=== PATIENT | female | born 1990 | race Hispanic/Latino ===

== ENCOUNTER 2017-02-23 22:18 | Emergency (ER) | payer OTHER ==
[2017-02-23 22:50] VITALS: O2SAT 100
[2017-02-23] MEDS ORDERED: Sodium Chloride 0.9% 1,000 ML IV STA (23:17)
[2017-02-23] MEDS ORDERED: Magnesium Sulfate 2 gm/50 ml 2 GM/50 ML BAG IV STA (23:26)
[2017-02-23] MEDS ORDERED: DiphenhydrAMINE 50 mg/ml Inj IV STA (23:26)
[2017-02-23] MEDS ORDERED: Promethazine 25 MG in Sodium Chloride 0.9% 50 ML IVPB STA (23:31)
[2017-02-23 23:46] LABS: BASO # 0.1 K/uL (0.0-0.2); BASO % 0.7 % (0.0-2.0); EOS # 0.1 K/uL (0.0-0.7); LYMPH # 3.5 K/uL (1.0-4.3); LYMPH % 27.7 % (20.0-40.0); MEAN CELL VOLUME 87.1 fl (81.0-99.0); MEAN CORPUSCULAR HEMOGLOBIN 29.4 pg (27.0-31.0); MEAN CORPUSCULAR HGB CONC 33.8 g/dL (33.0-37.0); MEAN PLATELET VOLUME 6.9 fl (7.2-11.7); MONO % 8.2 % (0.0-10.0); NEUT # 7.8 K/uL (1.8-7.0); NEUT % 62.4 % (50.0-75.0); RBC 4.42 Mil/uL (3.80-5.20); RED CELL DISTRIBUTION WIDTH 13.3 % (11.5-14.5); WHITE BLOOD COUNT 12.5 K/uL (4.8-10.8)
[2017-02-23] MEDS ORDERED: DiphenhydrAMINE 50 mg/ml Inj ONE (23:46)
[2017-02-23] MEDS ORDERED: Magnesium Sulfate 2 gm/50 ml 2 GM/50 ML BAG ONE (23:47)
[2017-02-23 23:53] LABS: ALB/GLOB RATIO 1.6 (1.0-2.1); ALBUMIN 4.7 g/dL (3.5-5.0); ALT/SGPT 43 U/L (9-52); AST/SGOT 25 U/L (14-36); BLOOD UREA NITROGEN 14 mg/dl (7-17); GFR AFRICAN-AMERICAN > 60; GFR NON-AFRICAN AMERICAN > 60
--- NOTE | 2017-02-24 00:09 | ED PDOC ---
HPI: Headache Time Seen by Provider: 02/23/17 23:16 Chief Complaint (Nursing): Headache History Per: Patient History/Exam Limitations: no limitations Onset/Duration Of Symptoms: Days (2) Current Symptoms Are (Timing): Still Present Severity: Severe Quality: "Pain" Preceeding Symptoms: Known Migraine Symptoms Associated Symptoms: denies: Photophobia, Blurred Vision, Nausea, Vomiting, Extremity Weakness Additional History Per: Patient Additional Complaint(s): Emy Hernandez is a 26 y/o female with history of Migraine and Cluster Headache, who complains of bilateral frontal headache x2 days that was not relieved with Imitrex injection, or Compazine. She denies any fever, photophobia , phonophobia, numbness, weakness, neck pain, neck stiffness, or other complaint. Patient reports history of chronic migraine and cluster headaches that have been stable over the last 6 months, but were exacerbated by previous black mold exposure. Past Medical History Vital Signs: Last Vital Signs Temp 98.5 F 02/23/17 22:46 Pulse 68 02/23/17 22:46 Resp 18 02/23/17 22:46 BP 124/74 02/23/17 22:46 Pulse Ox 100 02/23/17 22:46 - Medical History PMH: Migraine Other PMH: cluster headache, anorexia, and bulimia - Surgical History Surgical History: No Surg Hx - Family History Family History: States: Unknown Family Hx - Social History Current smoker - smoking cessation education provided: No Alcohol: None Drugs: Denies - Allergies Allergies/Adverse Reactions: Allergies Allergy/AdvReac Type Severity Reaction Status Date / Time Penicillins Allergy RASH Verified 02/23/17 22:46 Review of Systems ROS Statement: Except As Marked, All Systems Reviewed And Found Negative Neurological: Positive for: Headache Physical Exam - Reviewed Nursing Documentation Reviewed: Yes Vital Signs Reviewed: Yes - Physical Exam Appears: Positive for: Well, Non-toxic, No Acute Distress Head Exam: Positive for: ATRAUMATIC, NORMAL INSPECTION, NORMOCEPHALIC Skin: Positive for: Normal Color, Warm, DRY Eye Exam: Positive for: EOMI, Normal appearance, PERRL ENT: Positive for: Normal ENT Inspection Neck: Positive for: Normal, Painless ROM Cardiovascular/Chest: Positive for: Regular Rate, Rhythm Respiratory: Positive for: CNT, Normal Breath Sounds Gastrointestinal/Abdominal: Positive for: Normal Exam, Bowel Sounds, Soft Back: Positive for: Normal Inspection Extremity: Positive for: Normal ROM Neurologic/Psych: Positive for: Alert, Oriented - Laboratory Results Result Diagrams: 02/23/17 23:40 02/23/17 23:40 - ECG O2 Sat by Pulse Oximetry: 100 (RA) Pulse Ox Interpretation: Normal Medical Decision Making Medical Decision Making: Initial Impression: 26 y/o female complaining of headache in the setting of known history of migraine and cluster headache. Plan: - Phenergan, Magnesiu Sulfate, Solumetrol, Benadryl, and IVF - Urine Test and UDS 01:00: patient continues to complain of pain, requesting Dilaudid. Discussed with patient that narcotics are not indicated for headache and recommended Keppra. 02:00: Patient continues to complain of pain that is unchanged, and is requesting Dilaudid. Offered patient Toradol, who accepted. 02:49: patient continues to complain of pain and was given Tramadol. Discussed that her headache is intractable and a CT is prudent. Patient expressed that she wished to go to the [place], rather than be admitted here for intractable headache after she was informed that she would not be given any narcotics for her pain. Patient was discharged at her request in stable condition. Return and follow up instructions given. Scribe Attestation Documented by Mey Frey acting as a scribe for Rolando Arzate MD. Provider Attestation: All medical record entries made by the Scribe were at my direction and personally dictated by me. I have reviewed the chart and agree that the record accurately reflects my personal performance of the history, physical exam, medical decision making, and the department course for this patient. I have also personally directed, reviewed, and agree with the discharge instructions and disposition. Disposition - Clinical Impression Clinical Impression: Headache - Disposition Referrals: Antione Aguilar MD [Medical Doctor] - Disposition Time: 02:50 Condition: STABLE Instructions: Acute Headache (ED)
[2017-02-24] MEDS ORDERED: levETIRAcetam 500 MG in Sodium Chloride 0.9% 100 ML IVPB ONE (01:00)
[2017-02-24] MEDS ORDERED: Apap-Butalbital-Caffeine 325-50-40mg Tab PO STA (02:00)
[2017-02-24 03:16] VITALS: BP 125/80; PULSE 75; RESP 16; TEMP 97.9
== END 2017-02-24 03:16 | disposition home or self-care (01) ==
LOC: H.ER 22:18
DX: R51 Headache (principal); Z88.0 Allergy status to penicillin
CPT/HCPCS: 80053; 81025; 85025; 96365; 96367; 96375; 99283; J1200; J1885; J1953; J2550; J2930; J7040

== ENCOUNTER 2017-03-02 23:57 | Observation (INO) | payer OTHER ==
[2017-03-03] MEDS ORDERED: Sodium Chloride 0.9% 1,000 ML IV STA (00:58)
--- NOTE | 2017-03-03 01:12 | ED PDOC ---
HPI: Abdomen Time Seen by Provider: 03/03/17 00:47 Chief Complaint (Nursing): Abdominal Pain Chief Complaint (Provider): Addominal pain History Per: Patient History/Exam Limitations: no limitations Onset/Duration Of Symptoms: Hrs (Started 1 hour ago) Outside of [place] travel?: No Current Symptoms Are (Timing): Still Present Severity: Severe Pain Scale Rating Of: 9 Location Of Pain/Discomfort: Epigastric Quality Of Discomfort: Stabbing Associated Symptoms: Nausea, Vomiting (1 vomiting with mixed food, no blood.), Diarrhea (1 liquid diarrhea containing rest of food, no blood or mucus.). denies: Fever, Chills Exacerbating Factors: None Alleviating Factors: None Last Bowel Movement: Today Additional History Per: Patient Additional Complaint(s): CC: abdominal pain. HPI: Patient 26 yo F with PMH of Migraine and Anxiety presents to the ED complaining of severe abdominal pain in the epigastric area started 1 hour ago, 9/10, stabbing, no radiated, no alleviating or aggravating factors, associated with nausea, vomiting (1 vomit today with rest of food, no blood) and diarrhea( 1 liquid diarrhea no blood or mucus). Denies fever, chills, headache, urinary symptoms, no unusual food, no recent injury or trauma. PMH: Migraine, Anxiety. PSH: none. SH: Denies smoking. Alcohol socially. Denies recreational drugs. Allergies: Penicillins Meds: Flouxetine. Abnormal Vaginal Bleeding: No Past Medical History Vital Signs: Last Vital Signs Temp 98.4 F 03/03/17 00:12 Pulse 81 03/03/17 00:12 Resp 18 03/03/17 00:12 BP 126/70 03/03/17 00:12 Pulse Ox 98 03/03/17 05:24 - Medical History PMH: Anxiety, Migraine - Surgical History Surgical History: Endoscopy (and colonoscopy) - Family History Family History: States: Unknown Family Hx - Social History Current smoker - smoking cessation education provided: No Alcohol: Social Drugs: Denies - Home Medications Home Medications: Ambulatory Orders Medication Instructions Recorded Dicyclomine [Bentyl] 20 mg PO Q12 PRN #20 tab 03/03/17 Ondansetron ODT [Zofran ODT] 4 mg PO Q6 PRN #16 odt 03/03/17 - Allergies Allergies/Adverse Reactions: Allergies Allergy/AdvReac Type Severity Reaction Status Date / Time Penicillins Allergy RASH Verified 03/03/17 00:12 Review of Systems ROS Statement: Except As Marked, All Systems Reviewed And Found Negative Constitutional: Negative for: Fever, Chills, Weakness, Malaise Eyes: Negative for: Pain, Vision Change ENT: Negative for: Ear Pain, Nose Pain, Throat Pain Cardiovascular: Negative for: Chest Pain, Palpitations, Light Headedness Respiratory: Negative for: Cough, Shortness of Breath Gastrointestinal: Positive for: Nausea, Vomiting, Abdominal Pain, Diarrhea Genitourinary Female: Negative for: Dysuria, Frequency Musculoskeletal: Negative for: Neck Pain, Back Pain Skin: Negative for: Rash Neurological: Negative for: Weakness, Numbness, Altered Mental Status Physical Exam - Reviewed Nursing Documentation Reviewed: Yes Vital Signs Reviewed: Yes - Physical Exam Appears: Positive for: Well, No Acute Distress Head Exam: Positive for: ATRAUMATIC, NORMOCEPHALIC Skin: Positive for: Normal Color, Warm, Dry. Negative for: Diaphoresis Eye Exam: Positive for: Normal appearance, EOMI, PERRL. Negative for: Nystagmus ENT: Positive for: Normal ENT Inspection Neck: Positive for: Normal, Supple Cardiovascular/Chest: Positive for: Regular Rate, Rhythm. Negative for: Murmur Respiratory: Positive for: Normal Breath Sounds Pulses-Carotid (L): 2+ Pulses-Carotid (R): 2+ Pulses-Dorsalis Pedis (L): 2+ Pulses-Dorsalis Pedis (R): 2+ Pulses-Femoral (L): 2+ Pulses-Femoral (R): 2+ Pulses-Post. Tibialis (L): 2+ Pulses-Post. Tibialis (R): 2+ Pulses-Radial (L): 2+ Pulses-Radial (R): 2+ Gastrointestinal/Abdominal: Positive for: Bowel Sounds, Soft, Tenderness (Mild tenderness on palpation of epigastric area ). Negative for: Mass, Distended, Guarding, Rebound Back: Positive for: Normal Inspection Extremity: Positive for: Normal ROM. Negative for: Calf Tenderness DTR - Knee (R): 2+ DTR - Knee (L): 2+ Neurologic/Psych: Positive for: Alert, heating and cooling systems engineer II-XII, Oriented - Laboratory Results Result Diagrams: 03/03/17 01:24 03/03/17 01:24 - ECG O2 Sat by Pulse Oximetry: 98 - Progress ED Course And Treament: Impression: 26 yo F patient presents complaining of epigastric pain. Plan: CBC CMP Lipase test, urine Urinalysis IV NS. Pepcid 20 mg IV once. Zofran 4 mg IV once. Dicyclomine 20 mg PO once. Reevaluate. Medical Decision Making Medical Decision Making: Impression: 26 yo F patient presents complaining of epigastric pain. Plan: CBC: WNL CMP: WNL Lipase: normal test, urine Urinalysis: normal results. IV NS. Pepcid 20 mg IV once. Zofran 4 mg IV once. Dicyclomine 20 mg PO once. Reevaluate. 0220: Patient is still in pain, requests medications for pain, we explain that narcotics medications are no indicated for abdominal pain and that CT is prudent at this time, we recommend Toradol. 0300: Patient complains still in pain, we recommend Benadryl and Phenergan. Will admit her for observation. 0440: Received Abdominal CT scan without any abnormal observations. 0530: Patient refers feel better, she does no have pain at this time, will discharge her with instructions. Disposition - Clinical Impression Clinical Impression: Abdominal pain, Abdominal pain - Patient ED Disposition Is Patient to be Admitted: No Counseled Patient/Family Regarding: Studies Performed, Diagnosis, Need For Followup, Rx Given - Disposition Disposition: Routine/Home Disposition Time: 05:30 Condition: STABLE
[2017-03-03 01:27] LABS: BASO % 0.4 % (0.0-2.0); EOS # 0.4 K/uL (0.0-0.7); EOS % 3.9 % (0.0-4.0); HEMOGLOBIN 13.5 g/dL (12.0-16.0); LYMPH # 3.6 K/uL (1.0-4.3); LYMPH % 33.5 % (20.0-40.0); MEAN CORPUSCULAR HEMOGLOBIN 29.8 pg (27.0-31.0); MEAN CORPUSCULAR HGB CONC 33.9 g/dL (33.0-37.0); MEAN PLATELET VOLUME 7.2 fl (7.2-11.7); MONO % 9.2 % (0.0-10.0); NEUT # 5.7 K/uL (1.8-7.0); NRBC % 0.1 % (0.0-0.0); RBC 4.55 Mil/uL (3.80-5.20); RED CELL DISTRIBUTION WIDTH 13.3 % (11.5-14.5); WHITE BLOOD COUNT 10.7 K/uL (4.8-10.8)
[2017-03-03 01:35] LABS: ALB/GLOB RATIO 1.4 (1.0-2.1); ALBUMIN 4.5 g/dL (3.5-5.0); ALT/SGPT 48 U/L (9-52); AST/SGOT 32 U/L (14-36); BLOOD UREA NITROGEN 15 mg/dl (7-17); CALCIUM 9.5 mg/dL (8.4-10.2); GFR AFRICAN-AMERICAN > 60; GFR NON-AFRICAN AMERICAN > 60; LIPASE 118 U/L (23-300)
[2017-03-03] MEDS ORDERED: Iohexol 240 (50 ml) PO ONE (02:22)
[2017-03-03] MEDS ORDERED: DiphenhydrAMINE 50 mg/ml Inj IV STA (03:17)
[2017-03-03] MEDS ORDERED: Promethazine 25 MG in Sodium Chloride 0.9% 50 ML IVPB STA (03:36)
[2017-03-03] MEDS ORDERED: DiphenhydrAMINE 50 mg/ml Inj ONE (03:37)
[2017-03-03] MEDS ORDERED: Sodium Chloride 0.9% 50 ML IV ONE (04:06)
[2017-03-03] MEDS ORDERED: Iohexol 300 100 ML IJ ONE (04:06)
--- NOTE | 2017-03-03 09:52 | CT ---
PROCEDURE: CT Abdomen and Pelvis with oral and IV contrast. HISTORY: abd pain COMPARISON: None available TECHNIQUE: Contiguous axial images of the abdomen and pelvis. Oral and IV contrast was administered. Coronal and Sagittal reformats generated and reviewed. Contrast dose: 95 cc Omnipaque 300 Radiation dose: Total exam DLP = 647.41 mGy-cm. This CT exam was performed using one or more of the following dose reduction techniques: Automated exposure control, adjustment of the mA and/or kV according to patient size, and/or use of iterative reconstruction technique. FINDINGS: LOWER THORAX: No visible consolidation, pleural effusion, or pneumothorax. LIVER: Too small to characterize 8 x 7 mm left hepatic lobe hypodensity, possibly cyst or hemangioma. Mild diffuse hypoattenuation of the hepatic parenchyma may represent hepatic steatosis. GALLBLADDER AND BILE DUCTS: Unremarkable. PANCREAS: Unremarkable. SPLEEN: Unremarkable. ADRENALS: Unremarkable. KIDNEYS AND URETERS: The kidneys enhance symmetrically. No hydronephrosis or obstructing renal calculus. BLADDER: The urinary bladder appears unremarkable. REPRODUCTIVE: Uterus is present. IUD. Evidence of left ovarian follicle/cyst, likely recently ruptured. 2.3 x 1.3 cm cystic appearing focus along the right lower uterine segment/ cervix of unclear significance. Recommend further evaluation with pelvic ultrasound. APPENDIX: Appendix appears within normal limits of caliber. No secondary signs of acute appendicitis. BOWEL: The stomach is nondistended. The bowel loops appear within normal limits of caliber without evidence of intestinal obstruction. Moderate constipation. PERITONEUM: No significant free fluid. No definite free air. LYMPH NODES: No bulky lymphadenopathy identified. VASCULATURE: No aortic aneurysm. BONES: No acute osseous abnormality is detected. OTHER FINDINGS: None. IMPRESSION: 2.3 x 1.3 cm cystic appearing focus along the right lower uterine segment/ cervix of unclear significance. Recommend further evaluation with pelvic ultrasound. IUD. Evidence of left ovarian follicle/cyst, likely recently ruptured. Moderate constipation. Study has been marked for PA review.
[2017-03-03 12:21] VITALS: BP 126/70; PULSE 81; RESP 18; TEMP 98.4; O2SAT 98; BMI 21.9
[2017-03-04] MEDS ORDERED: DiphenhydrAMINE 50 mg/ml Inj ONE (22:00)
== END 2017-03-03 05:37 | disposition home or self-care (01) ==
LOC: H.ER 23:57 → H.EROBSV 03-03 02:39
PROVIDERS: ADMIT Emergency Medicine; ATTEND Emergency Medicine
DX: R10.13 Epigastric pain (principal); G43.909 Migraine, unspecified, not intractable, without status migrainosus; F41.9 Anxiety disorder, unspecified
CPT/HCPCS: 74177; 80053; 81025; 83690; 85025; 96360; 99283; G0378; J1200; J1885; J2405; J2550; J7040; Q9966; Q9967

== ENCOUNTER 2017-03-04 16:48 | Observation (INO) | payer OTHER ==
[2017-03-04 16:48] VITALS: BMI 21.9
[2017-03-04] MEDS ORDERED: Sodium Chloride 0.9% 1,000 ML IV STA (17:34)
[2017-03-04 17:55] LABS: BASO % 0.4 % (0.0-2.0); EOS # 0.2 K/uL (0.0-0.7); EOS % 1.8 % (0.0-4.0); HEMOGLOBIN 13.5 g/dL (12.0-16.0); LYMPH # 2.4 K/uL (1.0-4.3); LYMPH % 25.5 % (20.0-40.0); MEAN CORPUSCULAR HEMOGLOBIN 30.4 pg (27.0-31.0); MEAN CORPUSCULAR HGB CONC 34.5 g/dL (33.0-37.0); MEAN PLATELET VOLUME 7.3 fl (7.2-11.7); MONO # 0.9 K/uL (0.0-0.8); MONO % 9.1 % (0.0-10.0); NEUT % 63.2 % (50.0-75.0); NRBC % 0.2 % (0.0-0.0); RBC 4.45 Mil/uL (3.80-5.20); RED CELL DISTRIBUTION WIDTH 12.9 % (11.5-14.5); WHITE BLOOD COUNT 9.5 K/uL (4.8-10.8)
--- NOTE | 2017-03-04 17:59 | ED PDOC ---
HPI: Abdomen Time Seen by Provider: 03/04/17 17:22 Chief Complaint (Nursing): Abdominal Pain Chief Complaint (Provider): Abdominal Pain History Per: Patient History/Exam Limitations: no limitations Onset/Duration Of Symptoms: Days (x2 days) Current Symptoms Are (Timing): Still Present Additional Complaint(s): 26 y/o female presents to the emergency department with a complaint of an epigastric and right upper quadrant abdominal pain x2 days. Patient visited the emergency room here on 03/03/2017 for the same symptoms and completed a CAT Scan with no specific pathology noted for gastrointestinal abnormalities. There is right sided questionable pelvic cystic structure although patient does not have pain at the right lower quadrant. Denies nausea, diarrhea, painful urination or fever. Past Medical History Reviewed: Historical Data, Nursing Documentation, Vital Signs Vital Signs: Last Vital Signs Temp 98.7 F 03/04/17 16:52 Pulse 100 H 03/04/17 16:52 Resp 19 03/04/17 16:52 BP 147/71 03/04/17 16:52 Pulse Ox 99 03/04/17 18:05 - Medical History PMH: Anxiety, Migraine Other PMH: Childhood eating disorder - Surgical History Surgical History: Endoscopy (and colonoscopy) - Family History Family History: States: Unknown Family Hx - Home Medications Home Medications: Ambulatory Orders Medication Instructions Recorded Dicyclomine [Bentyl] 20 mg PO Q12 PRN #20 tab 03/03/17 Ondansetron ODT [Zofran ODT] 4 mg PO Q6 PRN #16 odt 03/03/17 - Allergies Allergies/Adverse Reactions: Allergies Allergy/AdvReac Type Severity Reaction Status Date / Time Penicillins Allergy RASH Verified 03/03/17 00:12 Review of Systems ROS Statement: Except As Marked, All Systems Reviewed And Found Negative Constitutional: Negative for: Fever Gastrointestinal: Positive for: Abdominal Pain. Negative for: Nausea, Diarrhea Genitourinary Female: Negative for: Dysuria Physical Exam - Reviewed Nursing Documentation Reviewed: Yes Vital Signs Reviewed: Yes - Physical Exam Appears: Positive for: Non-toxic, No Acute Distress Head Exam: Positive for: ATRAUMATIC, NORMAL INSPECTION, NORMOCEPHALIC Skin: Positive for: Normal Color, Warm, Dry Neck: Positive for: Normal, Supple Gastrointestinal/Abdominal: Positive for: Soft, Tenderness (Mild RUQ and epigastric tenderness). Negative for: Normal Exam (No RLQ tenderness), Mass Back: Positive for: Normal Inspection. Negative for: L CVA Tenderness, R CVA Tenderness Extremity: Positive for: Normal ROM. Negative for: Pedal Edema Neurologic/Psych: Positive for: Alert, Oriented - Laboratory Results Result Diagrams: 03/04/17 17:50 03/04/17 17:50 - ECG O2 Sat by Pulse Oximetry: 99 (RA) Pulse Ox Interpretation: Normal Medical Decision Making Medical Decision Making: Time: 17:33 Initial impression: Abdominal Pain Initial plan: --Abdomen Limited US --Pelvic non OB B Scan limited US --Pepcid 20 mg IVP --Morphine 2 mg IVP --Sodium Chloride 1,000 ml IV 100 mls/hr --Ondansetron 4 mg IVP --CBC w/ differential --Urine DIP --Urine Preg --Lipase --COMP Metabolic Panel --Reevaluation Scribe Attestation: Documented by Cindy Ragland, acting as a scribe for Fareed Maki MD. Provider Scribe Attestation: All medical record entries made by the Scribe were at my direction and personally dictated by me. I have reviewed the chart and agree that the record accurately reflects my personal performance of the history, physical exam, medical decision making, and the department course for this patient. I have also personally directed, reviewed, and agree with the discharge instructions and disposition. Disposition - Clinical Impression Clinical Impression: Abdominal pain - Patient ED Disposition Is Patient to be Admitted: Transfer of Care - Disposition Disposition: Transfer of Care Disposition Time: 18:57 Condition: FAIR Patient Signed Over To: Rolando Arzate
[2017-03-04 18:13] LABS: ALB/GLOB RATIO 1.3 (1.0-2.1); ALBUMIN 4.4 g/dL (3.5-5.0); ALT/SGPT 44 U/L (9-52); AST/SGOT 33 U/L (14-36); BLOOD UREA NITROGEN 12 mg/dl (7-17); CALCIUM 9.5 mg/dL (8.4-10.2); GFR AFRICAN-AMERICAN > 60; GFR NON-AFRICAN AMERICAN > 60; LIPASE 108 U/L (23-300)
--- NOTE | 2017-03-04 19:30 | ED PDOC ---
- Laboratory Results Result Diagrams: 03/04/17 17:50 03/04/17 17:50 - ECG O2 Sat by Pulse Oximetry: 99 (RA) Pulse Ox Interpretation: Normal Medical Decision Making Medical Decision Making: Time: 19:00 --Patient was transferred [facility] Dr. Maki [place]. --Pending Pelvic US Time: 19:13 --Abdomen US FINDINGS: The liver is normal in size (14.8 cm length). Small echogenic focus (9 mm avg. size) in left hepatic lobe. Moderately contracted gallbladder, with normal wall thickness. No stones nor sludge are seen. No pericholecystic fluid is appreciated. The sonographic Carrillo's sign is reported to be (-). The CBD is not dilated (3.6 mm diameter). The pancreas appears unremarkable. The right kidney measures 10.2 cm in length, with no hydronephrosis appreciated. No ascites is seen. IMPRESSION: Probable small hemangioma (8 mm size) in the left hepatic lobe. No gallstones are appreciated. Moderately contracted gallbladder. No biliary dilatation. No abnormal fluid collections are evident. Time: 20:53 --Pelvic US FINDINGS: Uterus/cervix: IUD in the endometrial canal. Endometrial stripe is thin. No myometrial mass. Right ovary: Unremarkable. No mass. Normal blood flow. Left ovary: Unremarkable. No mass. Normal blood flow. Free fluid: No free fluid. IMPRESSION: No acute findings. IUD in good position. Time: 20:51 --RN informed provider that she woudl like Compazine/Benadryl/Dilaudid for nausea and pain as she has received in [facility]. All normal results were explained at length to patient. Patient had informed nursing staff that she disliked this provider. In providers opinion, this is likely due to provider's refusal to administer patient opiates as she has requested. --This provider subsequently sat with the patient at length, and informed her that the role of the provider is not to befriend or necessarily be liked by the patient, but to provide appropriate and responsible medical care. Provider also explained that patient jeopardizes her care by asking for Dilaudid from providers as her presentation constitues opiate seeking behavior. The patient accepted her impropriety and began to cry that she is frustrated by her pain and does nopt know what to do. --The patient had requested IV Dilaudid for pain which the provider has refused. The patient was made aware that IV Dilaudid is not an appropriate form of treatment for her current condition. Patient is now agreeable to IV Benadryl and promethazine. --Furthermore the patient was made aware that in the absence of acute pathology or derangement of labs/imaging studies it is inappropriate to administer narcotics. Patient now cites concern about lack of improvement and inability to secure follow up. She states in past she has required naso gastrojejunal tubes for bowel rest when she has had similar episodes. --Patient has had 3 ED visits she has had in the last 9 days; provider opines she may benefit from observation status and GI and pain management consults. She has been unequivocally informed that hospitalist service will also not administer narcotics for pain. --Arrangement was made with Dr. Machado (hospitalist) for intractable abdominal. Condition is fair. --Admit to hospital routine: Observation in Med/Surg for intractable abdominal pain after consult with Dr. Daniela Machado MD Scribe Attestation: Documented by Cindy Ragland, acting as a scribe for Rolando Arzate MD. Provider Scribe Attestation: All medical record entries made by the Scribe were at my direction and personally dictated by me. I have reviewed the chart and agree that the record accurately reflects my personal performance of the history, physical exam, medical decision making, and the department course for this patient. I have also personally directed, reviewed, and agree with the discharge instructions and disposition. Disposition Counseled Patient/Family Regarding: Diagnosis - Clinical Impression Clinical Impression: Intractable abdominal pain - POA Present On Arrival: None - Disposition Disposition: Hospitalized as Observation Patient Disposition Time: 20:00 Condition: FAIR
[2017-03-04] MEDS ORDERED: DiphenhydrAMINE 50 mg/ml Inj IV STA (20:51)
--- NOTE | 2017-03-04 21:00 | CP.PCM.HP ---
History of Present Illness - History of Present Illness History of Present Illness: CC: Abd pain, n, v HPI: This is a 26 y/o female with MHx significant for migraine RICKS, past eating d /o, and 18 months now of ongoing GI issues without clear diagnosis. She comes in for the 2nd time this week with intractable abd pain, n, and occ vomiting. Denies f/c/n/v/d. States she has been worked up at various places and has had multiple scans, EGDs, etc. She did have a gastric emptying study that was abnormal some months ago. Over past two days pain has been worse, and she has not been able to tolerate PO. Denies EtOH, denies binging/purging. Follows gastroparesis diet. ROS: 14 systems reviewed, negative other than HPI MHx: Migraine, eating d/o in past SHx: Endoscopy, but no other surgeries Allergies: PCN, erythromycin Family Hx: reviewed, non contributory Social Hx: Lives with roommate, no tobacco or EtOH Present on Admission - Present on Admission Any Indicators Present on Admission: No Past Patient History - Infectious Disease Hx of Infectious Diseases: None - Past Social History Smoking Status: Never Smoked - NEUROLOGICAL Hx Migraine: Yes - GASTROINTESTINAL Hx Ulcer: Yes - PSYCHIATRIC Hx Anxiety: Yes - ANESTHESIA Hx Anesthesia: Yes Hx Anesthesia Reactions: No Hx Malignant Hyperthermia: No Meds Allergies/Adverse Reactions: Allergies Allergy/AdvReac Type Severity Reaction Status Date / Time Penicillins Allergy RASH Verified 03/03/17 00:12 Physical Exam - Constitutional Appears: No Acute Distress - Head Exam Head Exam: ATRAUMATIC, NORMOCEPHALIC - Eye Exam Eye Exam: EOMI, PERRL - ENT Exam ENT Exam: Mucous Membranes Moist - Neck Exam Neck exam: Positive for: Full Rom - Respiratory Exam Respiratory Exam: Clear to Auscultation Bilateral, NORMAL BREATHING PATTERN - Cardiovascular Exam Cardiovascular Exam: REGULAR RHYTHM, +S1, +S2 - GI/Abdominal Exam GI & Abdominal Exam: Normal Bowel Sounds, Soft, Tenderness Additional comments: diffuse ttp - Extremities Exam Extremities exam: Positive for: full ROM, normal inspection - Neurological Exam Neurological exam: Alert, CN II-XII Intact, Oriented x3 - Psychiatric Exam Psychiatric exam: Normal Affect, Normal Mood - Skin Skin Exam: Dry, Warm Results - Vital Signs Recent Vital Signs: Last Vital Signs Temp 98.7 F 03/04/17 16:52 Pulse 100 H 03/04/17 16:52 Resp 19 03/04/17 16:52 BP 147/71 03/04/17 16:52 Pulse Ox 99 03/04/17 19:30 - Labs Result Diagrams: 03/04/17 17:50 03/04/17 17:50 Labs: Laboratory Results - last 24 hr 03/04/17 03/04/17 17:50 17:50 WBC 9.5 RBC 4.45 Hgb 13.5 Hct 39.2 MCV 88.0 MCH 30.4 MCHC 34.5 RDW 12.9 Plt Count 256 MPV 7.3 Neut % (Auto) 63.2 Lymph % (Auto) 25.5 [place] % (Auto) 9.1 Eos % (Auto) 1.8 Baso % (Auto) 0.4 Neut # 6.0 Lymph # 2.4 [place] # 0.9 H Eos # 0.2 Baso # 0.0 Sodium 141 Potassium 4.0 Chloride 106 Carbon Dioxide 25 Anion Gap 14 BUN 12 Creatinine 0.7 Est GFR ( Amer) > 60 Est GFR (Non-Af Amer) > 60 Random Glucose 77 Calcium 9.5 Total Bilirubin 0.8 AST 33 ALT 44 Alkaline Phosphatase 74 Total Protein 7.8 Albumin 4.4 Globulin 3.4 Albumin/Globulin Ratio 1.3 Lipase 108 - Imaging and Cardiology US - abdomen Status: Report reviewed by me (FINDINGS:) Assessment & Plan (1) Abdominal pain Assessment and Plan: 26 y/o female with intractable abdominal pain, but no clear etiology. -Admit obs -NPO, IVF -Toradol for pain, Zofran/phenergen IV for n/v -GI consult in AM -Patient ambulates, no other DVT PPx for now Status: Acute (2) DVT prophylaxis Status: Acute
[2017-03-04] MEDS: Sodium Chloride 0.9% 1,000 ML IV SCH (22:04)
[2017-03-05 00:20] VITALS: O2SAT 98
[2017-03-05] MEDS ORDERED: Promethazine 25 MG in Sodium Chloride 0.9% 50 ML IVPB PRN (01:36)
[2017-03-05] MEDS: DiphenhydrAMINE 50 mg/ml Inj IVP PRN ×2 (01:54→08:32)
[2017-03-05] MEDS: Sodium Chloride 0.9% 1,000 ML IV SCH (08:24)
[2017-03-05 08:45] VITALS: BP 101/61; PULSE 79; RESP 20; TEMP 98
--- NOTE | 2017-03-05 11:23 | US ---
HISTORY: epigastric/RUQ pain COMPARISON: None. TECHNIQUE: Sonographic evaluation of the right upper quadrant of the abdomen. FINDINGS: LIVER: Measures 14.8 cm in length. Normal echogenicity of the liver parenchyma. 10 mm rounded echogenic mass in left lobe of liver. This corresponds to a mass identified on CT examination of 03/03/2017. Consider multiphasic contrast enhanced CT of the abdomen with hemangioma protocol. No biliary dilatation. No other hepatic mass. Smooth contour. GALLBLADDER: Gallbladder contracted. No calcified stones. No gross mural thickening. COMMON BILE DUCT: Measures 4 mm. No stones. No dilatation. PANCREAS: Unremarkable as visualized. No mass. No ductal dilatation. RIGHT KIDNEY: Measures 10.2 cm in length. Normal echogenicity. No calculus, mass, or hydronephrosis. AORTA: No aneurysmal dilatation. IVC: Unremarkable. OTHER FINDINGS: None . IMPRESSION: 10 mm echogenic rounded mass in left lobe of liver. Nonspecific. Consider contrast CT of the abdomen with hemangioma protocol. No cholelithiasis or cholecystitis. Otherwise unremarkable.
--- NOTE | 2017-03-05 11:35 | US ---
HISTORY: r/o mass, CT findings right side COMPARISON: None available. TECHNIQUE: Transabdominal FINDINGS: UTERUS: Measures 6.5 x 4.3 x 3.2 cm. No uterine mass. Intrauterine device noted. ENDOMETRIUM: Thin endometrium. Somewhat obscure prior presence of intrauterine device centrally within the endometrial echo complex. CERVIX: No cervical abnormality identified. RIGHT OVARY: Measures cm. No solid mass. Normal flow. LEFT OVARY: Measures 1.8 x 2.1 x 1.1 cm. No solid mass. Normal flow. FREE FLUID: No significant free fluid noted. OTHER FINDINGS: None. IMPRESSION: Intrauterine device located centrally within endometrial echo complex. Otherwise unremarkable examination.
--- NOTE | 2017-03-05 16:00 | CP.PCM.DIS ---
Provider - Provider Date of Admission: 03/04/17 20:51 Attending physician: Daniela Machado MD Primary care physician: none Time Spent in preparation of Discharge (in minutes): 15 Hospital Course - Lab Results Lab Results: Most Recent Lab Values WBC 9.5 K/uL (4.8-10.8) 03/04/17 17:50 RBC 4.45 Mil/uL (3.80-5.20) 03/04/17 17:50 Hgb 13.5 g/dL (12.0-16.0) 03/04/17 17:50 Hct 39.2 % (34.0-47.0) 03/04/17 17:50 MCV 88.0 fl (81.0-99.0) 03/04/17 17:50 MCH 30.4 pg (27.0-31.0) 03/04/17 17:50 MCHC 34.5 g/dL (33.0-37.0) 03/04/17 17:50 RDW 12.9 % (11.5-14.5) 03/04/17 17:50 Plt Count 256 K/uL (130-400) 03/04/17 17:50 MPV 7.3 fl (7.2-11.7) 03/04/17 17:50 Neut % (Auto) 63.2 % (50.0-75.0) 03/04/17 17:50 Lymph % (Auto) 25.5 % (20.0-40.0) 03/04/17 17:50 Morris % (Auto) 9.1 % (0.0-10.0) 03/04/17 17:50 Eos % (Auto) 1.8 % (0.0-4.0) 03/04/17 17:50 Baso % (Auto) 0.4 % (0.0-2.0) 03/04/17 17:50 Neut # 6.0 K/uL (1.8-7.0) 03/04/17 17:50 Lymph # 2.4 K/uL (1.0-4.3) 03/04/17 17:50 Morris # 0.9 K/uL (0.0-0.8) H 03/04/17 17:50 Eos # 0.2 K/uL (0.0-0.7) 03/04/17 17:50 Baso # 0.0 K/uL (0.0-0.2) 03/04/17 17:50 Sodium 141 mmol/l (132-148) 03/04/17 17:50 Potassium 4.0 MMOL/L (3.6-5.0) 03/04/17 17:50 Chloride 106 mmol/L (98-107) 03/04/17 17:50 Carbon Dioxide 25 mmol/L (22-30) 03/04/17 17:50 Anion Gap 14 (10-20) 03/04/17 17:50 BUN 12 mg/dl (7-17) 03/04/17 17:50 Creatinine 0.7 mg/dL (0.7-1.2) 03/04/17 17:50 Est GFR ( Amer) > 60 03/04/17 17:50 Est GFR (Non-Af Amer) > 60 03/04/17 17:50 Random Glucose 77 mg/dL (65-105) 03/04/17 17:50 Calcium 9.5 mg/dL (8.4-10.2) 03/04/17 17:50 Total Bilirubin 0.8 mg/dl (0.2-1.3) 03/04/17 17:50 AST 33 U/L (14-36) 03/04/17 17:50 ALT 44 U/L (9-52) 03/04/17 17:50 Alkaline Phosphatase 74 U/L (38-126) 03/04/17 17:50 Total Protein 7.8 G/DL (6.3-8.2) 03/04/17 17:50 Albumin 4.4 g/dL (3.5-5.0) 03/04/17 17:50 Globulin 3.4 gm/dL (2.2-3.9) 03/04/17 17:50 Albumin/Globulin Ratio 1.3 (1.0-2.1) 03/04/17 17:50 Lipase 108 U/L (23-300) 03/04/17 17:50 - Hospital Course Hospital Course: 26 y/o female with PMHx significant for migraine RICKS, past eating d/o, and 18 months now of ongoing GI issues without clear diagnosis came in for the 2nd time this week with intractable abd pain, n, and occ vomiting. Denies f/c/n/v/ d. States she has been worked up at various places and has had multiple scans, EGDs, etc. She did have a gastric emptying study that was abnormal some months ago. Over past two days pain has been worse, and she has not been able to tolerate PO. Denies EtOH, denies binging/purging. Follows gastroparesis diet.Denies weight loss. Patient was placed under observation in med/surg, started IVF, PPI and Zofran Ct abdomen 03/03 showed no acute pathology Abd Us showed no acute pathology laboratory data including cbc,cmp, lipase are all normal Patient hemodynamically stable, afebrile , ambulating freely in unit physical exam showed no abnormal findings, normal palpation, auscultation , minimal tenderness on epigastric area subjective ( not tender while questioning patient ) Patient requesting HIDA scan or other tests for proper diagnosis.All test results and findings were explained to the patient. At present there is no indication for HIDA scan since there is no suspicion for acute cholecystitis. Explained to the patient that her symptoms most likely are related to gastritis vs gastroparesis and diagnosis is based on history ,imaging and laboratory data . Proper treatment with PPI and reglan for at least 1 month in outpatient setting together with diet modification , low fat ,small portion healthy meals should be initiated.She has to follow up with GI doctor/ GI clinic for response monitoring and if necessary EGD if no response to such treatment. Offered to patient the option to see and talk to GI physician before discharge but she refused and decided to leave the hospital. Patient is hemodynamically stable for discharge. There is no need for acute care management advised patient to follow up with GI clinic/ doctor Dx ; Epigastric pain most likely related to gastritis and gastroparesis History eating disorder Discharge Exam - Head Exam Head Exam: ATRAUMATIC, NORMOCEPHALIC - Eye Exam Eye Exam: EOMI, Normal appearance, PERRL Pupil Exam: NORMAL ACCOMODATION - ENT Exam ENT Exam: Mucous Membranes Moist, Normal Exam - Neck Exam Neck exam: Full Rom, Normal Inspection - Respiratory Exam Respiratory Exam: Clear to PA & Lateral, NORMAL BREATHING PATTERN. absent: Rales, Rhonchi, Wheezes - Cardiovascular Exam Cardiovascular Exam: REGULAR RHYTHM, RRR, +S1, +S2. absent: JVD - GI/Abdominal Exam GI & Abdominal Exam: Normal Bowel Sounds, Soft, Tenderness (subjective epigastric tenderness on deep palpation). absent: Distended, Guarding, Hernia, Organomegaly, Rebound, Rigid - Rectal Exam Rectal Exam: Deferred - Extremities Exam Extremities exam: normal capillary refill, normal inspection, pedal pulses present - Back Exam Back exam: NORMAL INSPECTION - Neurological Exam Neurological exam: Alert, CN II-XII Intact, Oriented x3, Reflexes Normal - Psychiatric Exam Psychiatric exam: Flat Affect - Skin Skin Exam: Dry, Intact, Normal Color, Warm Discharge Plan - Follow Up Plan Condition: STABLE Disposition: HOME/ ROUTINE Patient education suggested?: Yes Instructions: Gastritis (DC), Acute Abdominal Pain (DC), Gastroparesis (DC) Referrals: Wilder Romo MD, PhD [Staff Provider] -
== END 2017-03-05 11:23 | disposition home or self-care (01) ==
LOC: H.ER 16:48 → H.MEDSURG1 20:51
PROVIDERS: ADMIT Internal Medicine; ATTEND Internal Medicine
DX: R10.13 Epigastric pain (principal); R11.2 Nausea with vomiting, unspecified; Z86.59 Personal history of other mental and behavioral disorders; G43.909 Migraine, unspecified, not intractable, without status migrainosus; Z88.0 Allergy status to penicillin; F41.9 Anxiety disorder, unspecified
CPT/HCPCS: 76705; 76856; 80053; 81025; 83690; 85025; 96361; 96365; 96375; 96376; 99283; G0378; J1200; J1885; J2270; J2405; J2550; J7040

== ENCOUNTER 2017-04-22 16:43 | Emergency (ER) | payer OTHER ==
[2017-04-22 16:44] VITALS: BMI 21.9
[2017-04-22 16:58] VITALS: BP 135/80; TEMP 97.8
--- NOTE | 2017-04-22 17:10 | ED PDOC ---
Lower Extremity Pain/Injury Time Seen by Provider: 04/22/17 16:56 Chief Complaint (Nursing): Lower Extremity Problem/Injury Chief Complaint (Provider): Left lower extremity pain History Per: Patient History/Exam Limitations: no limitations Onset/Duration Of Symptoms: Days (1 week) Current Symptoms Are (Timing): Still Present Additional History Per: Patient Additional Complaint(s): The patient is a 26yo female, presents to the ED for evaluation of left knee pain, radiating to her left ankle, worsening for the past week. Patient reports she has a history of injuries to her lower extremity and presents today because she is concerned she might have a hairline fracture in her lower extremity. She denies any running or impact to her legs. Of note, patient reports she is currently has an IUD in place. Patient states she took Tramadol this morning for pain with some relief. Patient denies any other medical complaints. Past Medical History Reviewed: Historical Data, Nursing Documentation, Vital Signs Vital Signs: Last Vital Signs Temp 97.8 F 04/22/17 16:54 Pulse 110 H 04/22/17 16:54 Resp 20 04/22/17 16:54 BP 135/80 04/22/17 16:54 Pulse Ox 99 04/22/17 16:54 - Medical History PMH: Anxiety, Migraine Denies: HIV, Chronic Kidney Disease - Surgical History Surgical History: Endoscopy (and colonoscopy) - Family History Family History: States: Unknown Family Hx - Immunization History Hx Tetanus Toxoid Vaccination: Yes (2016) Hx Influenza Vaccination: No Hx Pneumococcal Vaccination: No - Home Medications Home Medications: Ambulatory Orders Medication Instructions Recorded Cetirizine HCl [Children's 5 mg PO HS 03/04/17 Cetirizine HCl] FLUoxetine [Prozac] 20 mg PO HS 03/04/17 Ranitidine HCl [Acid Line Worker] 150 mg PO HS 03/04/17 diaZEpam [Valium] 5 mg PO DAILY PRN 03/04/17 traMADol [Ultram] 50 mg PO Q8 #6 tab 03/17/17 - Allergies Allergies/Adverse Reactions: Allergies Allergy/AdvReac Type Severity Reaction Status Date / Time FISH Allergy Verified 03/17/17 14:31 Penicillins Allergy RASH Verified 03/17/17 14:31 Review of Systems ROS Statement: Except As Marked, All Systems Reviewed And Found Negative Musculoskeletal: Positive for: Leg Pain (left knee radiating to ankle) Neurological: Negative for: Weakness, Numbness Physical Exam - Reviewed Nursing Documentation Reviewed: Yes Vital Signs Reviewed: Yes - Physical Exam Appears: Positive for: Well Head Exam: Positive for: ATRAUMATIC, NORMAL INSPECTION, NORMOCEPHALIC Skin: Positive for: Normal Color, Warm, DRY Eye Exam: Positive for: Normal appearance Neck: Positive for: Normal Cardiovascular/Chest: Positive for: Regular Rate, Rhythm Respiratory: Negative for: Respiratory Distress Pulses-Dorsalis Pedis (L): 2+ Extremity: Positive for: Normal ROM, Tenderness (tenderness to posterior knee, left distal fibular tenderness.). Negative for: Calf Tenderness, Deformity, Swelling Neurologic/Psych: Positive for: Alert, Oriented. Negative for: Motor/Sensory Deficits - ECG O2 Sat by Pulse Oximetry: 99 (RA) Pulse Ox Interpretation: Normal Medical Decision Making Medical Decision Making: Time: 1704 Impression: Lower extremity pain r/o DVT Plan: -- XR left ankle -- Doppler US left lower extremity Reassess Time: 1811 XR Left ankle as read by provider is normal; no indications of fractures or dislocations noted. Time: 1851 Patient with continued pain. Tramadol 50 mg PO ordered Time: 1855 US Doppler IMPRESSION: No sonographic or Doppler evidence for DVT in left lower extremity. Scribe Attestation: Documented by Jenifer Ireland acting as a scribe for RHONDA Calhoun Provider Attestation: All medical record entries made by the Scribe were at my direction and personally dictated by me. I have reviewed the chart and agree that the record accurately reflects my personal performance of the history, physical exam, medical decision making, and the department course for this patient. I have also personally directed, reviewed, and agree with the discharge instructions and disposition. Disposition - Clinical Impression Clinical Impression: Ankle pain, Knee pain - Patient ED Disposition Is Patient to be Admitted: No - Disposition Referrals: Sohail Dawson MD [Medical Doctor] - Disposition: Routine/Home Disposition Time: 19:07 Condition: GOOD Additional Instructions: Ice, elevation. Motrin for pain. Follow-up with orthopedics. Instructions: Calcific Tendinitis (ED) Forms: [employer] (Macedonian)
--- NOTE | 2017-04-22 18:37 | RAD ---
PROCEDURE: Left Ankle Radiographs. HISTORY: left lateral ankle pain COMPARISON: None FINDINGS: BONES: No evidence of acute displaced fracture nor dislocation. The osseous structures appear intact. Talar dome intact. Tiny calcifications seen within the soft tissues adjacent to the inferior aspect lateral malleolus. Findings could represent old posttraumatic sequela. There is minor soft tissue swelling overlying the lateral malleolus JOINTS: Normal. No osteoarthritis. Ankle mortise maintained. Talar dome intact SOFT TISSUES: As above. OTHER FINDINGS: None. IMPRESSION: No evidence of acute displaced fracture nor dislocation. The osseous structures appear intact. Talar dome intact. Tiny calcifications seen within the soft tissues adjacent to the inferior aspect lateral malleolus. Findings could represent old posttraumatic sequela. There is minor soft tissue swelling overlying the lateral malleolus
--- NOTE | 2017-04-22 18:54 | US ---
HISTORY: Posterior leg pain. PRIORS: None. Move FINDINGS: 2-D, color and duplex Doppler analysis of the lower extremity venous circulation using routine protocol from the femoral veins through the popliteal veins. Venous compressibility: Normal. Flow and augmentation patterns: Normal. Visualized veins upper third of calf: Normal. Gomez cyst: None. IMPRESSION: No sonographic or Doppler evidence for DVT in left lower extremity.
[2017-04-22 19:31] VITALS: PULSE 89; RESP 16; O2SAT 100
== END 2017-04-22 19:30 | disposition home or self-care (01) ==
LOC: H.ER 16:43
DX: M25.562 Pain in left knee (principal); M25.572 Pain in left ankle and joints of left foot

== ENCOUNTER 2017-04-24 21:34 | Observation (INO) | payer OTHER ==
[2017-04-24 21:34] VITALS: BMI 21.9
[2017-04-24 21:40] VITALS: BP 124/72; PULSE 80; RESP 18; TEMP 98.8; O2SAT 99
[2017-04-24] MEDS ORDERED: Sodium Chloride 0.9% 1,000 ML IV STA (22:18)
[2017-04-24] MEDS ORDERED: Iohexol 240 (50 ml) PO ONE (22:18)
--- NOTE | 2017-04-24 22:26 | ED PDOC ---
HPI: Abdomen Time Seen by Provider: 04/24/17 22:00 Chief Complaint (Nursing): Abdominal Pain Chief Complaint (Provider): Abdominal Pain History Per: Patient History/Exam Limitations: no limitations Onset/Duration Of Symptoms: Days Current Symptoms Are (Timing): Still Present Additional Complaint(s): 26 y/o female presents to the emergency department with severe constant worsening epigastric abdominal pain since this morning. States the pain stays there and does not radiate. Associated with vomiting (non-bloody). Reports taking prescribed Tylneol with codeine without the relief of pain. States similar pain on/off for the past 2 years but this episode is worse than ever. Admits visiting many doctors with multiple endoscopy and diagnosed with gastritis. Denies diarrhea. Of note, patient scheduled for a endoscopy later on this month. Past Medical History Reviewed: Historical Data, Nursing Documentation, Vital Signs Vital Signs: Last Vital Signs Temp 98.8 F 04/24/17 21:37 Pulse 80 04/24/17 21:37 Resp 18 04/24/17 21:37 BP 124/72 04/24/17 21:37 Pulse Ox 99 04/25/17 03:13 - Medical History PMH: Anxiety, Gastritis (possible gastroparesis), Migraine Denies: HIV, Chronic Kidney Disease - Surgical History Surgical History: Endoscopy (and colonoscopy) - Family History Family History: Denies: Unknown Family Hx Other Family History: No abdominal surgeries - Immunization History Hx Tetanus Toxoid Vaccination: Yes (2016) Hx Influenza Vaccination: No Hx Pneumococcal Vaccination: No - Home Medications Home Medications: Ambulatory Orders Medication Instructions Recorded Cetirizine HCl [Children's 5 mg PO HS 03/04/17 Cetirizine HCl] FLUoxetine [Prozac] 20 mg PO HS 03/04/17 Ranitidine HCl [Acid Welder Gas] 150 mg PO HS 03/04/17 diaZEpam [Valium] 5 mg PO DAILY PRN 03/04/17 traMADol [Ultram] 50 mg PO Q8 #6 tab 03/17/17 Metoclopramide HCl [Reglan] 10 mg PO TID PRN #15 tablet 04/25/17 - Allergies Allergies/Adverse Reactions: Allergies Allergy/AdvReac Type Severity Reaction Status Date / Time FISH Allergy Verified 03/17/17 14:31 Penicillins Allergy RASH Verified 03/17/17 14:31 Review of Systems ROS Statement: Except As Marked, All Systems Reviewed And Found Negative Gastrointestinal: Positive for: Vomiting, Abdominal Pain. Negative for: Diarrhea, Hematemesis Physical Exam - Reviewed Nursing Documentation Reviewed: Yes Vital Signs Reviewed: Yes - Physical Exam Appears: Positive for: Non-toxic, No Acute Distress, Uncomfortable Head Exam: Positive for: ATRAUMATIC, NORMAL INSPECTION, NORMOCEPHALIC Skin: Positive for: Normal Color, Warm, Dry Eye Exam: Positive for: Normal appearance, EOMI Neck: Positive for: Normal, Supple, Decreased ROM Cardiovascular/Chest: Negative for: Murmur Respiratory: Positive for: Normal Breath Sounds. Negative for: Accessory Muscle Use, Wheezing, Respiratory Distress Gastrointestinal/Abdominal: Positive for: Soft, Tenderness (Epigastric region). Negative for: Normal Exam, Distended Extremity: Positive for: Normal ROM. Negative for: Pedal Edema Neurologic/Psych: Positive for: Alert, Oriented (x3) - Laboratory Results Result Diagrams: 04/24/17 23:14 04/24/17 23:14 - ECG O2 Sat by Pulse Oximetry: 99 (RA) Pulse Ox Interpretation: Normal Medical Decision Making Medical Decision Making: Time: 22:18 Initial impression: Abdominal pain. Differential includes gastritis, pancreatitis, cholecystitis, and peptic ulcer disease. Must also consider acute appendicitis and other conditions that are not listed. Initial plan: Abd Pelvis PO & IV Contrast CT CMP Lipase Urine DIP & Preg CBC w/ diff Pepcid 20 mg IVP Iohexol 50 ml PO Reglan 10 mg IV Morphine 4 mg IVP Sodium Chloride 1L IV Reevaluation Scribe Attestation: Documented by Cindy Ragland, acting as a scribe for Liliane Viramontes MD. Provider Scribe Attestation: All medical record entries made by the Scribe were at my direction and personally dictated by me. I have reviewed the chart and agree that the record accurately reflects my personal performance of the history, physical exam, medical decision making, and the department course for this patient. I have also personally directed, reviewed, and agree with the discharge instructions and disposition. ED OBSERVATION Date of observation admission: 04/24/17 Time of observation admission: 23:00 - Observation admission statement Patient is being placed in observation because:: Pt w/ abdominal pain - Goals of Observation Goals of observation are:: Pending ER workup - Progress Note Progress Note: 04/24/17 23:[address] AP, resting in room and is in no acute distress. 04/25/17 01:43 CT AP IMPRESSION: No findings to suggest acute appendicitis.. 04/25/17 03:13 Labs reviewed and indicate no clinically significant abnormalities. Patient is stable for d/c home. Pt informed to return to ED if symptoms worsen or new symptoms arise. Disposition - Clinical Impression Clinical Impression: Abdominal pain in female - Patient ED Disposition Is Patient to be Admitted: No Doctor Will See Patient In The: Office Counseled Patient/Family Regarding: Studies Performed, Diagnosis, Need For Followup - Disposition Disposition: Routine/Home Disposition Time: 23:00 Condition: GOOD
[2017-04-24 23:17] LABS: BASO # 0.1 K/uL (0.0-0.2); EOS # 0.4 K/uL (0.0-0.7); EOS % 3.7 % (0.0-4.0); HEMATOCRIT 40.2 % (34.0-47.0); LYMPH # 3.9 K/uL (1.0-4.3); LYMPH % 34.2 % (20.0-40.0); MEAN CELL VOLUME 85.9 fl (81.0-99.0); MEAN CORPUSCULAR HEMOGLOBIN 29.1 pg (27.0-31.0); MEAN CORPUSCULAR HGB CONC 33.8 g/dL (33.0-37.0); MEAN PLATELET VOLUME 7.2 fl (7.2-11.7); MONO # 0.8 K/uL (0.0-0.8); MONO % 7.3 % (0.0-10.0); NEUT # 6.2 K/uL (1.8-7.0); NEUT % 53.8 % (50.0-75.0); RED CELL DISTRIBUTION WIDTH 12.3 % (11.5-14.5); WHITE BLOOD COUNT 11.5 K/uL (4.8-10.8)
[2017-04-24 23:27] LABS: ALB/GLOB RATIO 1.4 (1.0-2.1); ALKALINE PHOSPHATASE 104 U/L (38-126); ALT/SGPT 35 U/L (9-52); AST/SGOT 26 U/L (14-36); BILIRUBIN,TOTAL 0.7 mg/dl (0.2-1.3); BLOOD UREA NITROGEN 8 mg/dl (7-17); CALCIUM 10.2 mg/dL (8.4-10.2); CARBON DIOXIDE 22 mmol/L (22-30); CHLORIDE 103 mmol/L (98-107); GFR AFRICAN-AMERICAN > 60; GLUCOSE,RANDOM 88 mg/dL (65-105); LIPASE 48 U/L (23-300); POTASSIUM 3.8 MMOL/L (3.6-5.0); SODIUM 136 mmol/l (132-148); TOTAL PROTEIN 7.5 G/DL (6.3-8.2)
[2017-04-25] MEDS ORDERED: Iohexol 300 100 ML IJ ONE (01:18)
[2017-04-25] MEDS ORDERED: Sodium Chloride 0.9% 50 ML IV ONE (01:18)
--- NOTE | 2017-04-25 10:17 | CT ---
PROCEDURE: CT Abdomen and Pelvis with contrast HISTORY: abdominal pain COMPARISON: Comparison is made to the previous study dated 03/03/2017 TECHNIQUE: Contrast dose: 95 mL Omnipaque 300. Axial and reformatted coronal and sagittal CT images of the abdomen and pelvis were obtained after IV and oral contrast administration. Radiation dose: Total exam DLP = 686.29 mGy-cm. This CT exam was performed using one or more of the following dose reduction techniques: Automated exposure control, adjustment of the mA and/or kV according to patient size, and/or use of iterative reconstruction technique. FINDINGS: LOWER THORAX: Unremarkable. LIVER: Unremarkable. No gross lesion or ductal dilatation. GALLBLADDER AND BILE DUCTS: Unremarkable. PANCREAS: Unremarkable. No gross lesion or ductal dilatation. SPLEEN: Unremarkable. ADRENALS: Unremarkable. No mass. KIDNEYS AND URETERS: Unremarkable. No hydronephrosis. No solid mass. VASCULATURE: Unremarkable. No aortic aneurysm. BOWEL: Unremarkable. No obstruction. No gross mural thickening. APPENDIX: No evidence of acute appendicitis. PERITONEUM: Unremarkable. No free fluid. No free air. LYMPH NODES: Unremarkable. No enlarged lymph nodes. BLADDER: Unremarkable. REPRODUCTIVE: IUD is again seen in place. Again seen is a cystic/low-attenuation lesion at the right aspect of the uterine cervix measures 1.9 centimeter. BONES: No acute fracture. OTHER FINDINGS: None. IMPRESSION: No evidence of acute appendicitis. No evidence of significant interval change since the previous exam. Slightly dilated right ureter. Correlate clinically for UTI. Stable low-attenuation/cystic structure at the right aspect of the uterine cervix. IUD is seen in place. Preliminary report was submitted by [facility].
== END 2017-04-25 03:16 | disposition home or self-care (01) ==
LOC: H.ER 21:34 → H.EROBSV 23:33
PROVIDERS: ADMIT Emergency Medicine; ATTEND Emergency Medicine
DX: R10.13 Epigastric pain (principal); Z91.013 Allergy to seafood; Z88.0 Allergy status to penicillin; K29.70 Gastritis, unspecified, without bleeding; F41.9 Anxiety disorder, unspecified; G43.909 Migraine, unspecified, not intractable, without status migrainosus
CPT/HCPCS: 74177; 80053; 81025; 83690; 85025; 96374; 96375; 99283; G0378; J2270; J2765; J7040; Q9966; Q9967

== ENCOUNTER 2017-05-26 02:05 | Emergency (ER) | payer OTHER ==
[2017-05-26 02:05] VITALS: BMI 21.9
[2017-05-26 02:18] VITALS: TEMP 98.6; O2SAT 100
[2017-05-26] MEDS ORDERED: Sodium Chloride 0.9% 1,000 ML IV STA (02:28)
--- NOTE | 2017-05-26 02:44 | ED PDOC ---
HPI: Abdomen Time Seen by Provider: 05/26/17 02:20 Chief Complaint (Nursing): Abdominal Pain Chief Complaint (Provider): Abdominal Pain History Per: Patient History/Exam Limitations: no limitations Onset/Duration Of Symptoms: Days (x1) Current Symptoms Are (Timing): Still Present Additional Complaint(s): Emy James is a 27 year old female with previous medical history of anorexia and gastritis, who presents to the emergency department with a complaint of worsening epigastric pain and nausea status post colonoscopy and endoscopy performed in [place] yesterday which showed evidence of gastritis and hemorrhoids. Denied any fever, chills or vomiting. Patient stated she is able to pass gas, had normal bowel movements and that pain is similar to the intermittent abdominal pain she has experienced in the last 2 years. PMD: none provided Past Medical History Reviewed: Historical Data, Nursing Documentation, Vital Signs Vital Signs: Last Vital Signs Temp 98.6 F 05/26/17 02:13 Pulse 78 05/26/17 02:13 Resp 18 05/26/17 02:13 BP 103/70 05/26/17 02:13 Pulse Ox 100 05/26/17 02:51 - Medical History PMH: Anxiety, Gastritis (possible gastroparesis), Migraine Denies: HIV, Chronic Kidney Disease - Surgical History Surgical History: Endoscopy (and colonoscopy) - Family History Family History: Denies: Unknown Family Hx - Immunization History Hx Tetanus Toxoid Vaccination: Yes (2016) Hx Influenza Vaccination: No Hx Pneumococcal Vaccination: No - Home Medications Home Medications: Ambulatory Orders Medication Instructions Recorded Cetirizine HCl [Children's 5 mg PO HS 03/04/17 Cetirizine HCl] FLUoxetine [Prozac] 20 mg PO HS 03/04/17 Ranitidine HCl [Acid Mail Processor] 150 mg PO HS 03/04/17 diaZEpam [Valium] 5 mg PO DAILY PRN 03/04/17 traMADol [Ultram] 50 mg PO Q8 #6 tab 03/17/17 Metoclopramide HCl [Reglan] 10 mg PO TID PRN #15 tablet 04/25/17 Dicyclomine [Dicyclomine HCl] 10 mg PO QID #30 cap 05/26/17 Docusate [Colace] 100 mg PO BID #30 cap 05/26/17 Sod Phos,M-B/Na Phos,Di-Ba [Fleet 133 ml RC BID #10 enema 05/26/17 Enema] - Allergies Allergies/Adverse Reactions: Allergies Allergy/AdvReac Type Severity Reaction Status Date / Time FISH Allergy Verified 03/17/17 14:31 Penicillins Allergy RASH Verified 03/17/17 14:31 Review of Systems ROS Statement: Except As Marked, All Systems Reviewed And Found Negative Constitutional: Negative for: Fever, Chills Gastrointestinal: Positive for: Nausea, Abdominal Pain (epigastric), Other ( able to pass gas). Negative for: Vomiting Physical Exam - Reviewed Nursing Documentation Reviewed: Yes Vital Signs Reviewed: Yes - Physical Exam Appears: Positive for: Well, Non-toxic Head Exam: Positive for: ATRAUMATIC, NORMAL INSPECTION, NORMOCEPHALIC Skin: Positive for: Normal Color Eye Exam: Positive for: Normal appearance ENT: Positive for: Normal ENT Inspection Neck: Positive for: Normal Cardiovascular/Chest: Positive for: Regular Rate, Rhythm. Negative for: Chest Non Tender, Murmur Respiratory: Positive for: Normal Breath Sounds, Accessory Muscle Use. Negative for: Decreased Breath Sounds, Respiratory Distress Gastrointestinal/Abdominal: Positive for: Soft, Tenderness (mild epigastric). Negative for: Normal Exam, Mass Back: Positive for: Normal Inspection. Negative for: L CVA Tenderness, R CVA Tenderness Extremity: Positive for: Normal ROM. Negative for: Tenderness, Pedal Edema Neurologic/Psych: Positive for: Alert, Oriented - Laboratory Results Result Diagrams: 05/26/17 03:03 05/26/17 03:03 - ECG O2 Sat by Pulse Oximetry: 100 (RA) Pulse Ox Interpretation: Normal Medical Decision Making Medical Decision Making: Initial Impression: Gastritis Initial Plan: * BMP * Lact acid * Urine pregnanacy * Urine dipstick * CBC * Xray obstructive series * NS 1,000ml IV 500mls/hr * Protonix INJ 40mg IVP * Zofran INJ 4mg IVP 630: Xray shows constipation/stool burden. Patient perseverating over pain medication. Explained that narcotics will further increase stool burden. Pt. to be discharged with stool softeners, bentyl, and fleet enema. Explained to patient that if she does not get relief from prescribed meds, she should return to the ER for CT. Scribe Attestation: Documented by Apoorva Wood, acting as a scribe for Jaguar Vargas MD. Provider Scribe Attestation: All medical record entries made by the Scribe were at my direction and personally dictated by me. I have reviewed the chart and agree that the record accurately reflects my personal performance of the history, physical exam, medical decision making, and the department course for this patient. I have also personally directed, reviewed, and agree with the discharge instructions and disposition. Disposition - Clinical Impression Clinical Impression: Constipation - Patient ED Disposition Is Patient to be Admitted: No - Disposition Disposition: Routine/Home Disposition Time: 06:43 Condition: STABLE Prescriptions: Dicyclomine [Dicyclomine HCl] 10 mg PO QID #30 cap Docusate [Colace] 100 mg PO BID #30 cap Sod Phos,M-B/Na Phos,Di-Ba [Fleet Enema] 133 ml RC BID #10 enema Instructions: Constipation (ED), Acute Abdominal Pain (DC) Forms: [employer] (Malian)
[2017-05-26 03:06] LABS: BASO % 0.4 % (0.0-2.0); EOS # 0.5 K/uL (0.0-0.7); EOS % 4.1 % (0.0-4.0); HEMATOCRIT 38.7 % (34.0-47.0); LYMPH # 3.6 K/uL (1.0-4.3); LYMPH % 30.4 % (20.0-40.0); MEAN CELL VOLUME 84.5 fl (81.0-99.0); MEAN CORPUSCULAR HEMOGLOBIN 28.4 pg (27.0-31.0); MEAN CORPUSCULAR HGB CONC 33.7 g/dL (33.0-37.0); MEAN PLATELET VOLUME 7.3 fl (7.2-11.7); MONO # 1.1 K/uL (0.0-0.8); NEUT # 6.7 K/uL (1.8-7.0); NEUT % 56.1 % (50.0-75.0); RED CELL DISTRIBUTION WIDTH 12.4 % (11.5-14.5)
[2017-05-26 03:15] LABS: BLOOD UREA NITROGEN 8 mg/dl (7-17); CALCIUM 9.1 mg/dL (8.4-10.2); CARBON DIOXIDE 22 mmol/L (22-30); CHLORIDE 106 mmol/L (98-107); GFR AFRICAN-AMERICAN > 60; GLUCOSE,RANDOM 85 mg/dL (65-105); POTASSIUM 3.7 MMOL/L (3.6-5.0); SODIUM 141 mmol/l (132-148)
[2017-05-26] MEDS ORDERED: Iohexol 240 (50 ml) PO ONE (06:07)
[2017-05-26 07:59] VITALS: BP 118/78; PULSE 86; RESP 16
--- NOTE | 2017-05-26 10:56 | RAD ---
PROCEDURE: Radiographs of the chest and abdomen (obstructive series) HISTORY: endo/colonoscopy yesterday, r/o perf . By history, negative test (concurrent with this examination). COMPARISON: 04/25/2017 CT abdomen and pelvis TECHNIQUE: AP radiograph of the chest, with upright and supine radiographs of the abdomen. FINDINGS: CHEST: Lungs: Clear. Cardiovascular: Normal size heart. No pulmonary vascular congestion. Pleura: No pleural fluid. No pneumothorax. Other findings: None. ABDOMEN AND PELVIS: Bowel: Unremarkable bowel gas pattern. No evidence of mechanical obstruction. Free air: None. Bones: Scoliosis, secondary degenerative change at multiple levels. Other findings: Intrauterine contraceptive device (IUD) identified IMPRESSION: No significant or acute findings to account for/ related to the clinical presentation.
== END 2017-05-26 06:50 | disposition home or self-care (01) ==
LOC: H.ER 02:05
DX: K59.00 Constipation, unspecified (principal)
CPT/HCPCS: 74022; 80048; 81025; 83605; 85025; 96361; 96374; 96375; 99283; C9113; J2405; J7040

== ENCOUNTER 2017-05-27 16:21 | Emergency (ER) | payer OTHER ==
[2017-05-27 16:21] VITALS: BMI 21.9
[2017-05-27 16:40] VITALS: BP 131/79; PULSE 80; RESP 18; TEMP 98; O2SAT 99
[2017-05-27] MEDS ORDERED: Iohexol 240 (50 ml) PO ONE (17:10)
[2017-05-27] MEDS ORDERED: Alum-Mag Hydrox-Simethicone Susp (30 mL) PO ONE (17:11)
[2017-05-27] MEDS ORDERED: Sodium Chloride 0.9% 1,000 ML IV STA (17:11)
[2017-05-27] MEDS ORDERED: Iohexol 240 (50 ml) ONE (17:24)
[2017-05-27] MEDS ORDERED: Alum-Mag Hydrox-Simethicone Susp (30 mL) ONE (17:25)
[2017-05-27 17:41] LABS: RBC URINE 2 /hpf (0-3); URINE BACTERIA OCC (<OCC); URINE BILIRUBIN NEGATIVE (NEGATIVE); URINE BLOOD SMALL (NEGATIVE); URINE COLOR YELLOW (YELLOW); URINE GLUCOSE (UA) NEG (Normal); URINE KETONE NEGATIVE (NEGATIVE); URINE LEUKOCYTE ESTERASE NEG Leu/uL (Negative); URINE PROTEIN NEGATIVE (NEGATIVE); URINE UROBILINOGEN 0.2-1.0 mg/dL (0.2-1.0); WBC URINE 2 /hpf (0-5)
--- NOTE | 2017-05-27 17:42 | ED PDOC ---
HPI: General Adult Time Seen by Provider: 05/27/17 16:51 Chief Complaint (Nursing): Abdominal Pain History Per: Patient Additional Complaint(s): Pt. states on 05/24/2017 after she had her colonoscopy/endoscopy done at the [facility] she developed epigastric and LLQ abdominal pain. Pt. states symptoms persisted prompting ED visit on 05/25/2017. Pt. had blood work and an obstructive series done which showed constipation. She was prescribed multiple constipation meds without any relief. States she still has pain and has only had watery stools. Stools are yellow in color. Denies fever, weakness, bleeding , melena, hematochezia, BRBPR, hematemesis, previous abdominal surgeries. Past Medical History Reviewed: Historical Data, Nursing Documentation, Vital Signs Vital Signs: Last Vital Signs Temp 98 F 05/27/17 16:35 Pulse 80 05/27/17 16:35 Resp 18 05/27/17 16:35 BP 131/79 05/27/17 16:35 Pulse Ox 99 05/27/17 18:15 - Medical History PMH: Anxiety, Gastritis (possible gastroparesis), Migraine Denies: HIV, Chronic Kidney Disease - Surgical History Surgical History: Endoscopy (and colonoscopy) Other surgeries: colonoscopy - Family History Family History: Denies: Unknown Family Hx - Immunization History Hx Tetanus Toxoid Vaccination: Yes (2016) Hx Influenza Vaccination: No Hx Pneumococcal Vaccination: No - Home Medications Home Medications: Ambulatory Orders Medication Instructions Recorded Cetirizine HCl [Children's 5 mg PO HS 03/04/17 Cetirizine HCl] FLUoxetine [Prozac] 20 mg PO HS 03/04/17 Ranitidine HCl [Acid Hair Spring Winder] 150 mg PO HS 03/04/17 diaZEpam [Valium] 5 mg PO DAILY PRN 03/04/17 traMADol [Ultram] 50 mg PO Q8 #6 tab 03/17/17 Metoclopramide HCl [Reglan] 10 mg PO TID PRN #15 tablet 04/25/17 Dicyclomine [Dicyclomine HCl] 10 mg PO QID #30 cap 05/26/17 Docusate [Colace] 100 mg PO BID #30 cap 05/26/17 Sod Phos,M-B/Na Phos,Di-Ba [Fleet 133 ml RC BID #10 enema 05/26/17 Enema] - Allergies Allergies/Adverse Reactions: Allergies Allergy/AdvReac Type Severity Reaction Status Date / Time FISH Allergy Verified 03/17/17 14:31 Penicillins Allergy RASH Verified 03/17/17 14:31 Review of Systems ROS Statement: Except As Marked, All Systems Reviewed And Found Negative Gastrointestinal: Positive for: Nausea, Vomiting, Abdominal Pain Physical Exam - Reviewed Nursing Documentation Reviewed: Yes Vital Signs Reviewed: Yes - Physical Exam Appears: Positive for: Well, Non-toxic, No Acute Distress Head Exam: Positive for: ATRAUMATIC, NORMAL INSPECTION, NORMOCEPHALIC Skin: Positive for: Normal Color, Warm. Negative for: Rash Eye Exam: Positive for: EOMI, Normal appearance, PERRL ENT: Positive for: Normal ENT Inspection Neck: Positive for: Normal, Painless ROM Cardiovascular/Chest: Positive for: Regular Rate, Rhythm Respiratory: Positive for: CNT, Normal Breath Sounds Gastrointestinal/Abdominal: Positive for: Normal Exam, Bowel Sounds, Soft, Tenderness (LLQ and epigastric tenderness) Back: Positive for: Normal Inspection. Negative for: L CVA Tenderness, R CVA Tenderness Extremity: Positive for: Normal ROM Neurologic/Psych: Positive for: Alert, Oriented. Negative for: Aphasia, Facial Droop - Laboratory Results Result Diagrams: 05/27/17 17:43 05/27/17 17:43 - ECG O2 Sat by Pulse Oximetry: 99 - Progress ED Course And Treament: Labs ordered. CT abd/pelvis w/ PO and IV contrast ordered. Pepcid 20mg IV, maalox 30ml PO, zofran 4mg IV, IV NS bolus ordered. 1812 Pt. reports continued pain. Morphine 4mg IV ordered. Still pending CT. Case d/w Dr. Maki and agrees with care. 1899 On re-evaluation, pt. reports good pain relief. Pending CT. Disposition - Clinical Impression Clinical Impression: Abdominal pain - Patient ED Disposition Is Patient to be Admitted: Transfer of Care (Signed out to Deangelo MAYORGA pending CT results and final disposition.) - Disposition Disposition Time: 20:00 Condition: STABLE Forms: [email or web address] (North Korean)
[2017-05-27 17:47] LABS: BASO % 0.4 % (0.0-2.0); EOS # 0.3 K/uL (0.0-0.7); EOS % 2.7 % (0.0-4.0); HEMATOCRIT 39.8 % (34.0-47.0); LYMPH # 2.4 K/uL (1.0-4.3); LYMPH % 24.2 % (20.0-40.0); MEAN CELL VOLUME 86.2 fl (81.0-99.0); MEAN CORPUSCULAR HEMOGLOBIN 28.7 pg (27.0-31.0); MEAN CORPUSCULAR HGB CONC 33.3 g/dL (33.0-37.0); MEAN PLATELET VOLUME 7.3 fl (7.2-11.7); MONO # 0.7 K/uL (0.0-0.8); MONO % 6.5 % (0.0-10.0); NEUT # 6.6 K/uL (1.8-7.0); NEUT % 66.2 % (50.0-75.0); NRBC % 0.1 % (0.0-0.0); RED CELL DISTRIBUTION WIDTH 12.7 % (11.5-14.5)
[2017-05-27 18:03] LABS: ALB/GLOB RATIO 1.5 (1.0-2.1); ALKALINE PHOSPHATASE 53 U/L (38-126); ALT/SGPT 27 U/L (9-52); AST/SGOT 23 U/L (14-36); BILIRUBIN,TOTAL 1.1 mg/dl (0.2-1.3); BLOOD UREA NITROGEN 8 mg/dl (7-17); CALCIUM 9.7 mg/dL (8.4-10.2); CARBON DIOXIDE 24 mmol/L (22-30); CHLORIDE 105 mmol/L (98-107); GFR AFRICAN-AMERICAN > 60; GLUCOSE,RANDOM 85 mg/dL (65-105); LIPASE 59 U/L (23-300); POTASSIUM 3.9 MMOL/L (3.6-5.0); SODIUM 141 mmol/l (132-148); TOTAL PROTEIN 7.4 G/DL (6.3-8.2)
[2017-05-27] MEDS ORDERED: Iohexol 300 100 ML IJ ONE (19:51)
[2017-05-27] MEDS ORDERED: Sodium Chloride 0.9% 50 ML IV ONE (19:51)
[2017-05-27] MEDS ORDERED: DiphenhydrAMINE 50 mg/ml Inj ONE (20:28)
[2017-05-27] MEDS ORDERED: DiphenhydrAMINE 50 mg/ml Inj IM STA (20:29)
--- NOTE | 2017-05-27 20:31 | ED PDOC ---
"- Laboratory Results Result Diagrams: 05/27/17 17:43 05/27/17 17:43 - ECG O2 Sat by Pulse Oximetry: 99 Medical Decision Making Medical Decision Making: Case endorsed to handbook writer from TIERRA Win at 20:00 pending diagnostic review and re-eval HPI: General Adult Time Seen by Provider: 05/27/17 16:51 Chief Complaint (Nursing): Abdominal Pain History Per: Patient Additional Complaint(s): Pt. states on 05/24/2017 after she had her colonoscopy/endoscopy done at the [facility] she developed epigastric and LLQ abdominal pain. Pt. states symptoms persisted prompting ED visit on 05/25/2017. Pt. had blood work and an obstructive series done which showed constipation. She was prescribed multiple constipation meds without any relief. States she still has pain and has only had watery stools. Stools are yellow in color. Denies fever, weakness, bleeding , melena, hematochezia, BRBPR, hematemesis, previous abdominal surgeries. CT FINDINGS: Lower thorax: No acute findings. ABDOMEN: Liver: Unremarkable. No mass. Gallbladder and bile ducts: Unremarkable. No calcified stones. No ductal dilation. Pancreas: Unremarkable. No mass. No ductal dilation. Spleen: Unremarkable. No splenomegaly. Adrenals: Unremarkable. No mass. Kidneys and ureters: Unremarkable. No solid mass. No hydronephrosis. Stomach and bowel: Unremarkable. No obstruction. No mucosal thickening. Appendix: No findings to suggest acute appendicitis. PELVIS: NEO ARMSTRONG | Preliminary Radiology Report FIELD CLINICAL ENGINEER (QA) DISCREPANCY? If there is a discrepancy between the preliminary and final interpretation, please notify [facility] via [email or web address]. If you do not have access to our QA portal, call our QA team at [phone] CONFIDENTIALITY STATEMENT This report is intended only for the use of the referring physician, and only in accordance with law, If you received this in error, call [phone] Page 2 of 2 Bladder: Unremarkable. No mass. Reproductive: Intrauterine device is present. ABDOMEN and PELVIS: Intraperitoneal space: Unremarkable. No free air. No significant fluid collection. Bones/joints: No acute fracture. No dislocation. Soft tissues: Right perineal cyst. Vasculature: Unremarkable. No abdominal aortic aneurysm. Lymph nodes: Unremarkable. No enlarged lymph nodes. IMPRESSION: No acute obstructive or inflammatory process in the abdomen or pelvis. All results discussed with Pt who demonstrated full understanding. Pt doing well on re-eval, no complaints of pain Stable for discharge at this time Disposition - Clinical Impression Clinical Impression: Abdominal pain - POA Present On Arrival: None - Disposition Disposition: Routine/Home Disposition Time: 22:03 Condition: STABLE Forms: [employer] (Martiniquais)"
--- NOTE | 2017-05-28 07:09 | CT ---
PROCEDURE: CT Abdomen and Pelvis with contrast HISTORY: epigastric, LLQ abdominal pain COMPARISON: Abdomen and pelvis CT with contrast 03/03/2017. TECHNIQUE: Contrast dose: Omnipaque 300, 95 cc Radiation dose: Total exam DLP = 744.75 mGy-cm. This CT exam was performed using one or more of the following dose reduction techniques: Automated exposure control, adjustment of the mA and/or kV according to patient size, and/or use of iterative reconstruction technique. FINDINGS: LOWER THORAX: Unremarkable once again. LIVER: Unremarkable. No gross lesion or ductal dilatation. GALLBLADDER AND BILE DUCTS: Unremarkable. PANCREAS: Unremarkable. No gross lesion or ductal dilatation. SPLEEN: Unremarkable. ADRENALS: Unremarkable. No mass. KIDNEYS AND URETERS: Unremarkable. No hydronephrosis. No solid mass. VASCULATURE: Unremarkable. No aortic aneurysm. BOWEL: Unremarkable. No obstruction. No gross mural thickening. APPENDIX: Normal appendix. PERITONEUM: Unremarkable. No free fluid. No free air. LYMPH NODES: Unremarkable. No enlarged lymph nodes. BLADDER: Unremarkable. REPRODUCTIVE: Unremarkable. BONES: No acute fracture. OTHER FINDINGS: None. IMPRESSION: Unremarkable contrast enhanced CT of the abdomen and pelvis. No signal change from prior and pelvis CT exam dated 03/03/2017. Concordant preliminary report from [facility], 05/27/2017.
== END 2017-05-27 21:10 | disposition home or self-care (01) ==
LOC: H.ER 16:21
DX: R10.13 Epigastric pain (principal)
CPT/HCPCS: 74177; 80053; 81003; 81025; 83690; 85025; 96372; 96374; 96375; 99285; J2270; J2405; J2550; J7040; Q9966; Q9967

== ENCOUNTER 2017-07-31 15:48 | Emergency (ER) | payer OTHER ==
[2017-07-31 15:49] VITALS: BMI 21.9
[2017-07-31 15:56] VITALS: RESP 18
[2017-07-31] MEDS: Sodium Chloride 0.9% 1,000 ML IV STA (18:25)
[2017-07-31] MEDS ORDERED: Sucralfate 1 gm/10 ml Oral Susp UD ONE (18:33)
[2017-07-31] MEDS: Sucralfate 1 gm/10 ml Oral Susp UD PO STA (18:36)
[2017-07-31 18:42] LABS: BASO # 0.1 K/uL (0.0-0.2); BASO % 0.6 % (0.0-2.0); EOS # 0.1 K/uL (0.0-0.7); EOS % 0.7 % (0.0-4.0); HEMATOCRIT 40.9 % (34.0-47.0); LYMPH # 2.1 K/uL (1.0-4.3); LYMPH % 21.4 % (20.0-40.0); MEAN CELL VOLUME 85.9 fl (81.0-99.0); MEAN CORPUSCULAR HEMOGLOBIN 28.3 pg (27.0-31.0); MEAN CORPUSCULAR HGB CONC 32.9 g/dL (33.0-37.0); MEAN PLATELET VOLUME 7.3 fl (7.2-11.7); MONO # 0.6 K/uL (0.0-0.8); MONO % 5.9 % (0.0-10.0); NEUT # 7.1 K/uL (1.8-7.0); NEUT % 71.4 % (50.0-75.0); NRBC % 0.1 % (0.0-0.0); RED CELL DISTRIBUTION WIDTH 13.5 % (11.5-14.5)
[2017-07-31 18:54] LABS: ALB/GLOB RATIO 1.4 (1.0-2.1); ALKALINE PHOSPHATASE 61 U/L (38-126); ALT/SGPT 30 U/L (9-52); AST/SGOT 25 U/L (14-36); BILIRUBIN,TOTAL 1.2 mg/dl (0.2-1.3); BLOOD UREA NITROGEN 6 mg/dl (7-17); CALCIUM 9.6 mg/dL (8.4-10.2); CARBON DIOXIDE 26 mmol/L (22-30); CHLORIDE 105 mmol/L (98-107); GFR AFRICAN-AMERICAN > 60; GLUCOSE,RANDOM 82 mg/dL (65-105); LIPASE 51 U/L (23-300); POTASSIUM 3.8 MMOL/L (3.6-5.0); SODIUM 141 mmol/l (132-148); TOTAL PROTEIN 8.2 G/DL (6.3-8.2)
[2017-07-31 19:24] LABS: RBC URINE < 1 /hpf (0-3); URINE BACTERIA RARE (<OCC); URINE BILIRUBIN NEGATIVE (NEGATIVE); URINE BLOOD MODERATE (NEGATIVE); URINE COLOR STRAW (YELLOW); URINE GLUCOSE (UA) NEG (Normal); URINE KETONE NEGATIVE (NEGATIVE); URINE LEUKOCYTE ESTERASE NEG Leu/uL (Negative); URINE PROTEIN NEGATIVE (NEGATIVE); URINE UROBILINOGEN 0.2-1.0 mg/dL (0.2-1.0); WBC URINE < 1 /hpf (0-5)
[2017-07-31 21:03] VITALS: BP 119/79; PULSE 72; TEMP 98.1; O2SAT 99
--- NOTE | 2017-07-31 21:25 | ED PDOC ---
HPI: Abdomen Time Seen by Provider: 07/31/17 16:26 Chief Complaint (Nursing): Abdominal Pain Chief Complaint (Provider): recurrent abdominal pain History Per: Patient History/Exam Limitations: no limitations Current Symptoms Are (Timing): Intermittent Episodes Context: Food Severity: Moderate Location Of Pain/Discomfort: Epigastric Quality Of Discomfort: Cramping, Burning Associated Symptoms: Nausea, Loss Of Appetite. denies: Diarrhea, Constipation, Urinary Symptoms Exacerbating Factors: Food Alleviating Factors: None Last Bowel Movement: Today Additional Complaint(s): 27yo female presents c/o recurrent upper abdominal pain c/w gastritis ongoing for 4-5 days, has had multiple endoscopies the last of which was several months ago [place], recently moved here. Denies bloody stools, melena or hematemesis. Vomited once sunday, no fever. Past Medical History Reviewed: Historical Data, Nursing Documentation, Vital Signs Vital Signs: Last Vital Signs Temp 98.1 F 07/31/17 21:02 Pulse 72 07/31/17 21:02 Resp 18 07/31/17 21:02 BP 119/79 07/31/17 21:02 Pulse Ox 99 07/31/17 21:02 - Medical History PMH: Anxiety, Gastritis (possible gastroparesis), Migraine Denies: HIV, Chronic Kidney Disease - Surgical History Surgical History: Endoscopy (and colonoscopy) - Family History Family History: Denies: Unknown Family Hx - Social History Current smoker - smoking cessation education provided: No Alcohol: None Drugs: Denies - Immunization History Hx Tetanus Toxoid Vaccination: Yes (2016) Hx Influenza Vaccination: No Hx Pneumococcal Vaccination: No - Home Medications Home Medications: Ambulatory Orders Medication Instructions Recorded Cetirizine HCl [Children's 5 mg PO HS 03/04/17 Cetirizine HCl] FLUoxetine [Prozac] 20 mg PO HS 03/04/17 Ranitidine HCl [Acid Restaurant Service Manager] 150 mg PO HS 03/04/17 diaZEpam [Valium] 5 mg PO DAILY PRN 03/04/17 traMADol [Ultram] 50 mg PO Q8 #6 tab 03/17/17 Metoclopramide HCl [Reglan] 10 mg PO TID PRN #15 tablet 04/25/17 Dicyclomine [Dicyclomine HCl] 10 mg PO QID #30 cap 05/26/17 Docusate [Colace] 100 mg PO BID #30 cap 05/26/17 Sod Phos,M-B/Na Phos,Di-Ba [Fleet 133 ml RC BID #10 enema 05/26/17 Enema] Pantoprazole Sodium [Protonix] 40 mg PO DAILY #15 ect 07/31/17 - Allergies Allergies/Adverse Reactions: Allergies Allergy/AdvReac Type Severity Reaction Status Date / Time FISH Allergy RASH Verified 06/27/17 16:52 Penicillins Allergy RASH Verified 06/27/17 16:52 Review of Systems ROS Statement: Except As Marked, All Systems Reviewed And Found Negative Constitutional: Negative for: Fever, Chills ENT: Negative for: Ear Pain, Nose Pain Cardiovascular: Negative for: Chest Pain, Palpitations Respiratory: Negative for: Cough, Shortness of Breath Gastrointestinal: Positive for: Nausea, Vomiting, Abdominal Pain. Negative for : Diarrhea, Constipation, Melena, Hematochezia, Hematemesis Genitourinary Female: Negative for: Dysuria, Frequency Skin: Negative for: Rash, Lesions Neurological: Negative for: Weakness, Numbness Physical Exam - Reviewed Nursing Documentation Reviewed: Yes Vital Signs Reviewed: Yes - Physical Exam Appears: Positive for: Well, Non-toxic, No Acute Distress Head Exam: Positive for: ATRAUMATIC, NORMAL INSPECTION, NORMOCEPHALIC Skin: Positive for: Normal Color, Warm, DRY Eye Exam: Positive for: EOMI, Normal appearance, PERRL ENT: Positive for: Normal ENT Inspection Neck: Positive for: Normal, Painless ROM Cardiovascular/Chest: Positive for: Regular Rate, Rhythm Respiratory: Positive for: CNT, Normal Breath Sounds Gastrointestinal/Abdominal: Positive for: Bowel Sounds, Soft, Tenderness (mild epigastric tenderness). Negative for: Distended, Guarding, Rebound, Hernia, Asicites Back: Positive for: Normal Inspection Extremity: Positive for: Normal ROM Neurologic/Psych: Positive for: Alert, Oriented - Laboratory Results Result Diagrams: 07/31/17 18:33 07/31/17 18:33 Urine POC: Negative - ECG O2 Sat by Pulse Oximetry: 99 Pulse Ox Interpretation: Normal Medical Decision Making Medical Decision Making: workup initiated for recurrent abd pain. prior charts reviewed, CT performed for same pain within last 2 months. Also had US abdomen. Labs and therapetics ordered. Labs reviewed and unremarkable' Pt given antiemetic, sucralfate and pepcid, protonix, required low dose morphine which resolved pain. Given need for narcotics CT abd pelv was recommended to r/o more serious pathology but she stated she knows her gastritis very well and this is normal for her. [facility] database query reveals only rare Rx for tramadol and valium. CT was discussed again and she refused prior to discharge. Explained risks. Rx protonix and referred to GI. Disposition - Clinical Impression Clinical Impression: Abdominal pain - Patient ED Disposition Is Patient to be Admitted: No Counseled Patient/Family Regarding: Studies Performed, Diagnosis, Need For Followup, Rx Given - Disposition Referrals: Judy TURCIOS,MD Nancy [Medical Doctor] - Disposition: Routine/Home Disposition Time: 20:30 Condition: STABLE Additional Instructions: CT scan was recommended but refused. Return to ER for any worse or changing symptoms. Prescriptions: Pantoprazole Sodium [Protonix] 40 mg PO DAILY #15 ect Instructions: Acute Abdominal Pain (ED) Forms: [employer] (Macedonian)
== END 2017-07-31 21:24 | disposition home or self-care (01) ==
LOC: H.ER 15:48
DX: R10.13 Epigastric pain (principal); R11.0 Nausea; F41.9 Anxiety disorder, unspecified; Z88.0 Allergy status to penicillin
CPT/HCPCS: 80053; 81003; 81025; 83690; 85025; 96374; 96375; 99283; C9113; J2270; J7040

== ENCOUNTER 2017-09-04 20:14 | Emergency (ER) | payer OTHER ==
[2017-09-04 20:15] VITALS: BMI 21.9
[2017-09-04 21:16] VITALS: BP 128/68; PULSE 88; RESP 16; TEMP 98.4; O2SAT 98
[2017-09-04] MEDS ORDERED: Sodium Chloride 0.9% 1,000 ML IV STA (22:14)
[2017-09-04 22:18] LABS: BASO % 0.4 % (0.0-2.0); EOS # 0.2 K/uL (0.0-0.7); EOS % 1.8 % (0.0-4.0); HEMOGLOBIN 12.8 g/dL (12.0-16.0); LYMPH # 2.7 K/uL (1.0-4.3); LYMPH % 27.5 % (20.0-40.0); MEAN CORPUSCULAR HEMOGLOBIN 29.7 pg (27.0-31.0); MEAN CORPUSCULAR HGB CONC 34.9 g/dL (33.0-37.0); MONO # 0.7 K/uL (0.0-0.8); MONO % 6.7 % (0.0-10.0); NEUT # 6.3 K/uL (1.8-7.0); NEUT % 63.6 % (50.0-75.0); NRBC % 0.1 % (0.0-0.0); RBC 4.31 Mil/uL (3.80-5.20); RED CELL DISTRIBUTION WIDTH 13.4 % (11.5-14.5); WHITE BLOOD COUNT 9.8 K/uL (4.8-10.8)
[2017-09-04 23:03] LABS: ALB/GLOB RATIO 1.4 (1.0-2.1); ALBUMIN 4.6 g/dL (3.5-5.0); ALT/SGPT 27 U/L (9-52); AST/SGOT 33 U/L (14-36); BLOOD UREA NITROGEN 12 mg/dl (7-17); CALCIUM 9.6 mg/dL (8.4-10.2); GFR AFRICAN-AMERICAN > 60; GFR NON-AFRICAN AMERICAN > 60
--- NOTE | 2017-09-05 00:33 | ED PDOC ---
HPI: General Adult Time Seen by Provider: 09/04/17 21:47 Chief Complaint (Nursing): Chest Pain Chief Complaint (Provider): Chest Pain History Per: Patient History/Exam Limitations: no limitations Onset/Duration Of Symptoms: Days (x 2) Current Symptoms Are (Timing): Still Present Additional Complaint(s): Emy is a 27 year old, female with a past medical history of costochondritis, anxiety, and eating disorder, who presents to the emergency department complaining of chest pain for 2 days. Patient reports 2 days of chest pain worsen with breathing and movement. States symptoms are consistent with her previous episodes of costochondritis. States she had Valium 5 mg with no relief. Reports symptoms continue prompting to ED visit. Denies vomiting, diarrhea, coughing or shortness of breath. Reports diaphoretic and chest wall tenderness. PMD: Duc Kahn Past Medical History Reviewed: Historical Data, Nursing Documentation, Vital Signs Vital Signs: Last Vital Signs Temp 98.4 F 09/04/17 21:10 Pulse 88 09/04/17 21:10 Resp 16 09/04/17 21:10 BP 128/68 09/04/17 21:10 Pulse Ox 98 09/04/17 21:10 - Medical History PMH: Anxiety, Gastritis (possible gastroparesis), Migraine Denies: HIV, Chronic Kidney Disease Other PMH: costochondritis - Surgical History Surgical History: Endoscopy (and colonoscopy) - Family History Family History: Denies: Unknown Family Hx - Immunization History Hx Tetanus Toxoid Vaccination: Yes (2016) Hx Influenza Vaccination: No Hx Pneumococcal Vaccination: No - Home Medications Home Medications: Ambulatory Orders Medication Instructions Recorded Cetirizine HCl [Children's 5 mg PO HS 03/04/17 Cetirizine HCl] FLUoxetine [Prozac] 20 mg PO HS 03/04/17 Ranitidine HCl [Acid Electric Motor Assembler] 150 mg PO HS 03/04/17 diaZEpam [Valium] 5 mg PO DAILY PRN 03/04/17 traMADol [Ultram] 50 mg PO Q8 #6 tab 03/17/17 Metoclopramide HCl [Reglan] 10 mg PO TID PRN #15 tablet 04/25/17 Dicyclomine [Dicyclomine HCl] 10 mg PO QID #30 cap 05/26/17 Docusate [Colace] 100 mg PO BID #30 cap 05/26/17 Sod Phos,M-B/Na Phos,Di-Ba [Fleet 133 ml RC BID #10 enema 05/26/17 Enema] Pantoprazole Sodium [Protonix] 40 mg PO DAILY #15 ect 07/31/17 Cyclobenzaprine [Cyclobenzaprine 10 mg PO TID PRN #15 tab 09/04/17 HCl] - Allergies Allergies/Adverse Reactions: Allergies Allergy/AdvReac Type Severity Reaction Status Date / Time FISH Allergy SHORTNESS Verified 09/04/17 21:10 OF BREATH Penicillins Allergy unknown - Verified 09/04/17 21:10 childhood allergy Review of Systems ROS Statement: Except As Marked, All Systems Reviewed And Found Negative Constitutional: Positive for: Other (Diaphoresis) Cardiovascular: Positive for: Chest Pain (Worsen with breathing and movement), Other (Chest Wall Tenderness) Respiratory: Negative for: Cough, Shortness of Breath Gastrointestinal: Negative for: Vomiting, Diarrhea Physical Exam - Reviewed Nursing Documentation Reviewed: Yes Vital Signs Reviewed: Yes - Physical Exam Appears: Positive for: Non-toxic Head Exam: Positive for: ATRAUMATIC, NORMAL INSPECTION, NORMOCEPHALIC Skin: Positive for: Normal Color, Warm, Dry Eye Exam: Positive for: Normal appearance ENT: Positive for: Normal ENT Inspection Neck: Positive for: Normal Cardiovascular/Chest: Positive for: Regular Rate, Rhythm, Other (Tenderness on palpation of chest wall) Respiratory: Positive for: Normal Breath Sounds. Negative for: Respiratory Distress Gastrointestinal/Abdominal: Positive for: Normal Exam Extremity: Positive for: Normal ROM Neurologic/Psych: Positive for: Alert, Oriented - Laboratory Results Result Diagrams: 09/04/17 22:15 09/04/17 22:15 - ECG O2 Sat by Pulse Oximetry: 98 (RA) Pulse Ox Interpretation: Normal Medical Decision Making Medical Decision Making: Time: 22:01 Plan: - EKG - CMP - TSH - Troponin 1 - CBC - Chest X-Ray - Infectious Mononucleosis - Influenza A B Time: 22:14 - Sodium Chloride 0.9% 1,000 ml IV 1,000 mls/hr - Toradol 15 mg IV STAT Time: 23:39 - Ultram 50 mg PO Time: 00:01 - Flexeril 10 mg PO STAT Mild improvement of symptoms. Stable for discharge. Diagnosis is costochondritis. Scribe Attestation: Documented by Rupert Dunne, acting as a scribe for Rolando Arzate MD Provider Scribe Attestation: All medical record entries made by the Scribe were at my direction and personally dictated by me. I have reviewed the chart and agree that the record accurately reflects my personal performance of the history, physical exam, medical decision making, and the department course for this patient. I have also personally directed, reviewed, and agree with the discharge instructions and disposition. Disposition - Clinical Impression Clinical Impression: Chest wall pain, Costochondritis - Patient ED Disposition Is Patient to be Admitted: No - Disposition Disposition: Routine/Home Disposition Time: 00:35 Condition: STABLE Prescriptions: Cyclobenzaprine [Cyclobenzaprine HCl] 10 mg PO TID PRN #15 tab PRN Reason: chest wall pain Instructions: Costochondritis (ED) Forms: [employer] ([place] Citizen)
--- NOTE | 2017-09-05 09:06 | RAD ---
HISTORY: chest pain COMPARISON: No prior. TECHNIQUE: Chest PA and lateral FINDINGS: LUNGS: No active pulmonary disease. PLEURA: No significant pleural effusion identified. No pneumothorax apparent. CARDIOVASCULAR: Normal. OSSEOUS STRUCTURES: No significant abnormalities. VISUALIZED UPPER ABDOMEN: Normal. OTHER FINDINGS: None. IMPRESSION: No active disease.
--- NOTE | 2017-09-05 16:32 | CARD ---
APPROVED REPORT EKG Measurement Heart [id number] CT 130P72 [id number] <Conclusion> Normal sinus rhythm with sinus arrhythmia Normal ECG
== END 2017-09-05 00:30 | disposition home or self-care (01) ==
LOC: H.ER 20:14
DX: M94.0 Chondrocostal junction syndrome [Tietze] (principal); R07.9 Chest pain, unspecified; Z88.0 Allergy status to penicillin
CPT/HCPCS: 71046; 80053; 81025; 84443; 84484; 85025; 86308; 87804; 93005; 96360; 99282; J1885; J7040

== ENCOUNTER 2017-11-26 17:06 | Emergency (ER) | payer OTHER ==
[2017-11-26 17:06] VITALS: BMI 21.9
[2017-11-26 18:23] VITALS: BP 134/85; PULSE 75; RESP 18; TEMP 98.2; O2SAT 100
--- NOTE | 2017-11-26 20:31 | ED PDOC ---
"HPI: Abdomen Time Seen by Provider: 11/26/17 20:29 Chief Complaint (Nursing): Abdominal Pain Chief Complaint (Provider): abdominal pain History Per: Patient History/Exam Limitations: no limitations Outside of [place] travel?: No Location Of Pain/Discomfort: RLQ, Epigastric, LLQ Quality Of Discomfort: Cramping Associated Symptoms: Diarrhea, Urinary Symptoms (hematuria-mild 1x) Exacerbating Factors: None Alleviating Factors: None Last Bowel Movement: Today Past Medical History Vital Signs: Last Vital Signs Temp 98.2 F 11/26/17 18:20 Pulse 75 11/26/17 18:20 Resp 18 11/26/17 18:20 BP 134/85 11/26/17 18:20 Pulse Ox 100 11/26/17 23:01 - Medical History PMH: Anxiety, Gastritis (possible gastroparesis), Migraine Denies: HIV, Chronic Kidney Disease - Surgical History Surgical History: Endoscopy (and colonoscopy) - Family History Family History: States: Unknown Family Hx - Immunization History Hx Tetanus Toxoid Vaccination: Yes (2016) Hx Influenza Vaccination: No Hx Pneumococcal Vaccination: No - Home Medications Home Medications: Ambulatory Orders Medication Instructions Recorded Cetirizine HCl [Children's 5 mg PO HS 03/04/17 Cetirizine HCl] FLUoxetine [Prozac] 20 mg PO HS 03/04/17 Ranitidine HCl [Acid E Learning Specialist] 150 mg PO HS 03/04/17 diaZEpam [Valium] 5 mg PO DAILY PRN 03/04/17 traMADol [Ultram] 50 mg PO Q8 #6 tab 03/17/17 Metoclopramide HCl [Reglan] 10 mg PO TID PRN #15 tablet 04/25/17 Dicyclomine [Dicyclomine HCl] 10 mg PO QID #30 cap 05/26/17 Docusate [Colace] 100 mg PO BID #30 cap 05/26/17 Sod Phos,M-B/Na Phos,Di-Ba [Fleet 133 ml RC BID #10 enema 05/26/17 Enema] Pantoprazole Sodium [Protonix] 40 mg PO DAILY #15 ect 07/31/17 Cyclobenzaprine [Cyclobenzaprine 10 mg PO TID PRN #15 tab 09/04/17 HCl] - Allergies Allergies/Adverse Reactions: Allergies Allergy/AdvReac Type Severity Reaction Status Date / Time FISH Allergy SHORTNESS Verified 11/26/17 18:18 OF BREATH Penicillins Allergy unknown - Verified 11/26/17 18:18 childhood allergy Review of Systems ROS Statement: Except As Marked, All Systems Reviewed And Found Negative Gastrointestinal: Positive for: Nausea, Vomiting, Diarrhea, Constipation Genitourinary Female: Positive for: Hematuria. Negative for: Dysuria Physical Exam - Reviewed Nursing Documentation Reviewed: Yes Vital Signs Reviewed: Yes - Physical Exam Appears: Positive for: Uncomfortable Head Exam: Positive for: ATRAUMATIC, NORMAL INSPECTION, NORMOCEPHALIC Cardiovascular/Chest: Positive for: Regular Rate, Rhythm, Chest Non Tender. Negative for: Edema, Murmur, Bradycardia, Tachycardia Respiratory: Positive for: Normal Breath Sounds. Negative for: Accessory Muscle Use, Crackles, Rales, Rhonchi, Stridor, Wheezing, Respiratory Distress Pulses-Carotid (L): 2+ Pulses-Carotid (R): 2+ Pulses-Radial (L): 2+ Pulses-Radial (R): 2+ Gastrointestinal/Abdominal: Positive for: Normal Exam, Bowel Sounds (positive in all four quadrants; no tenderness at mcburney point; rovsing and zackery (-)(- )). Negative for: Tenderness, Mass - Laboratory Results Result Diagrams: 11/26/17 21:10 11/26/17 21:10 - ECG O2 Sat by Pulse Oximetry: 100 Medical Decision Making Medical Decision Making: R/O Acute abdomen over chronic gastritis EXAM: CT Abdomen and Pelvis With Intravenous Contrast CLINICAL HISTORY: 27 years old, female; Pain; Abdominal pain; Other: Rlq; Additional info: R/O acute abdomen TECHNIQUE: Axial computed tomography images of the abdomen and pelvis with intravenous contrast. All CT scans at this facility use one or more dose reduction techniques, viz.: automated exposure control; ma/kV adjustment per patient size (including targeted exams where dose is matched to indication; i.e. head); or iterative reconstruction technique. Coronal and sagittal reformatted images were created and reviewed. CONTRAST: 90 mL of [id number] administered intravenously. COMPARISON: CT - ABD PELVIS PO IV CONTRAST 2017-05-27 19:59 FINDINGS: Lung bases: Unremarkable. No mass. No consolidation. ABDOMEN: Liver: Unremarkable. No mass. Gallbladder and bile ducts: Unremarkable. No calcified stones. No ductal dilation. Pancreas: Unremarkable. No mass. No ductal dilation. Spleen: Unremarkable. No splenomegaly. Adrenals: Unremarkable. No mass. Kidneys and ureters: Unremarkable. No solid mass. No hydronephrosis. Stomach and bowel: Unremarkable. No obstruction. No mucosal thickening. Appendix: No findings to suggest acute appendicitis. Normal appendix. PELVIS: Bladder: Unremarkable. No mass. Reproductive: Unremarkable as visualized. Low-density structure in the LEFT adnexa most likely secondary to an ovarian follicle or cyst measuring 2.1 cm. Multiple nabothian cysts. ABDOMEN and PELVIS: Intraperitoneal space: Unremarkable. No free air. No significant fluid collection. NEO ARMSTRONG | Final Radiology Report CONFIDENTIALITY STATEMENT This report is intended only for use by the referring physician, and only in accordance with law. If you received this in error, call [phone]. Page 2 of 2 Bones/joints: No acute fracture. No dislocation. Soft tissues: Unremarkable. Vasculature: Unremarkable. No abdominal aortic aneurysm. Lymph nodes: Unremarkable. No enlarged lymph nodes. IMPRESSION: No evidence of an acute intra-abdominal or pelvic abnormality. Thank you for allowing us to participate in the care of your patient. Dictated and Authenticated by: Gabriella Claire, Disposition - Clinical Impression Clinical Impression: Gastritis - Patient ED Disposition Is Patient to be Admitted: No Doctor Will See Patient In The: Office Counseled Patient/Family Regarding: Studies Performed, Diagnosis, Need For Followup, Rx Given - Disposition Referrals: [facility] [Outside] Disposition: Routine/Home Disposition Time: 23:32 Condition: FAIR Instructions: Gastritis, Gastritis (DC) Forms: [employer] ([place])"
[2017-11-26 21:23] LABS: BASO % 0.5 % (0.0-2.0); EOS # 0.3 K/uL (0.0-0.7); EOS % 2.8 % (0.0-4.0); HEMOGLOBIN 12.8 g/dL (12.0-16.0); MEAN CELL VOLUME 80.5 fl (81.0-99.0); MEAN CORPUSCULAR HEMOGLOBIN 27.1 pg (27.0-31.0); MEAN CORPUSCULAR HGB CONC 33.6 g/dL (33.0-37.0); MONO # 0.5 K/uL (0.0-0.8); MONO % 5.6 % (0.0-10.0); NEUT # 5.3 K/uL (1.8-7.0); NEUT % 58.1 % (50.0-75.0); NRBC % 0.1 % (0.0-0.0); RBC 4.74 Mil/uL (3.80-5.20); RED CELL DISTRIBUTION WIDTH 13.5 % (11.5-14.5); WHITE BLOOD COUNT 9.1 K/uL (4.8-10.8)
[2017-11-26 21:26] LABS: SQUAMOUS EPITHIAL 1 /hpf (0-5); URINE BACTERIA RARE (<OCC); URINE BILIRUBIN NEGATIVE (NEGATIVE); URINE BLOOD NEGATIVE (NEGATIVE); URINE CLARITY SLIGHTY-CLOUDY (Clear); URINE COLOR YELLOW (YELLOW); URINE GLUCOSE (UA) NEG (Normal); URINE LEUKOCYTE ESTERASE NEG Leu/uL (Negative); URINE PROTEIN NEGATIVE (NEGATIVE); URINE UROBILINOGEN 0.2-1.0 mg/dL (0.2-1.0)
[2017-11-26 21:31] LABS: ALB/GLOB RATIO 1.2 (1.0-2.1); ALBUMIN 4.6 g/dL (3.5-5.0); ALT/SGPT 38 U/L (9-52); AST/SGOT 26 U/L (14-36); BLOOD UREA NITROGEN 8 mg/dl (7-17); CALCIUM 9.9 mg/dL (8.4-10.2); GFR AFRICAN-AMERICAN > 60; GFR NON-AFRICAN AMERICAN > 60; LIPASE 67 U/L (23-300)
[2017-11-26] MEDS ORDERED: Iohexol 300 100 ML IJ ONE (21:55)
--- NOTE | 2017-11-26 22:38 | CT ---
EXAM: CT Abdomen and Pelvis With Intravenous Contrast CLINICAL HISTORY: 27 years old, female; Pain; Abdominal pain; Other: Rlq; Additional info: R/O acute abdomen TECHNIQUE: Axial computed tomography images of the abdomen and pelvis with intravenous contrast. All CT scans at this facility use one or more dose reduction techniques, viz.: automated exposure control; ma/kV adjustment per patient size (including targeted exams where dose is matched to indication; i.e. head); or iterative reconstruction technique. Coronal and sagittal reformatted images were created and reviewed. CONTRAST: 90 mL of [id number] administered intravenously. COMPARISON: CT - ABD PELVIS PO IV CONTRAST 2017-05-27 19:59 FINDINGS: Lung bases: Unremarkable. No mass. No consolidation. ABDOMEN: Liver: Unremarkable. No mass. Gallbladder and bile ducts: Unremarkable. No calcified stones. No ductal dilation. Pancreas: Unremarkable. No mass. No ductal dilation. Spleen: Unremarkable. No splenomegaly. Adrenals: Unremarkable. No mass. Kidneys and ureters: Unremarkable. No solid mass. No hydronephrosis. Stomach and bowel: Unremarkable. No obstruction. No mucosal thickening. Appendix: No findings to suggest acute appendicitis. Normal appendix. PELVIS: Bladder: Unremarkable. No mass. Reproductive: Unremarkable as visualized. Low-density structure in the LEFT adnexa most likely secondary to an ovarian follicle or cyst measuring 2.1 cm. Multiple nabothian cysts. ABDOMEN and PELVIS: Intraperitoneal space: Unremarkable. No free air. No significant fluid collection. Bones/joints: No acute fracture. No dislocation. Soft tissues: Unremarkable. Vasculature: Unremarkable. No abdominal aortic aneurysm. Lymph nodes: Unremarkable. No enlarged lymph nodes. IMPRESSION: No evidence of an acute intra-abdominal or pelvic abnormality.
[2017-11-26] MEDS ORDERED: Morphine 4 MG/ML VIAL IVP ONE (23:32)
[2017-11-26] MEDS ORDERED: Morphine 4 MG/ML VIAL ONE (23:55)
== END 2017-11-27 00:11 | disposition home or self-care (01) ==
LOC: H.ER 17:06
DX: K29.70 Gastritis, unspecified, without bleeding (principal); Z88.0 Allergy status to penicillin; F41.9 Anxiety disorder, unspecified
CPT/HCPCS: 74177; 80053; 81003; 81025; 83690; 85025; 96374; 96375; 99283; J1885; J2270; Q9967